=== PATIENT | male | born 1940 | race Caucasian/White ===

== ENCOUNTER 2018-06-02 16:53 | Inpatient (IN) | payer MEDICARE, BC ==
[~2018-06-02] VITALS: Ht 180.3 cm; Wt 85.7 kg
--- NOTE | ~2018-06-02 | HEMODYNAMI ---
PATIENT:NILSON STONE MEDICAL RECORD: [id number] : 36 LOCATION:[place] [address] ADMISSION DATE: 06/02/18 Generatedon:06/03/201810:42 Patient name: NILSON STONE Patient #: [id number] SSN: : Date of study: 06/03/2018 Page: Of Hemodynamic Procedure Report Patient Data Patient Demographics Procedure consent was obtained First Name: NILSON Gender: Male Last Name: BERTHA : 1940 Patient #: [id number] Age: 77 year(s) Race: Unknown Additional ID: [id number] Contact details Address: [place] [address] State: [place] City: [place] Zip code: [address] Past Medical History Allergies: No known allergies Admission Admission Data Admission Date: 06/02/2018 Admission Time: 17:55 Room #: [facility] Procedure Procedure Types Cath Procedure Diagnostic Procedure LHC LHC w/Coronaries Intra-Aortic Balloon Pump Sedation Charges Moderate Sedation up to 30 minutes PCI Procedure Coronary Stent Coronary Stent Initial x2 Procedure Description Procedure Date Procedure Date: 06/03/2018 Procedure Start Time: 9:17 Procedure End Time: 10:41 Procedure Staff Name Function Ashutosh Mcgraw MD Performing Physician Shannon Kirkland RT Monitor Jonh Lemus RN Nurse Sidra Moreno RT Scrub Procedure Data Cath Procedure Fluoroscopy Diagnostic fluoroscopy Total fluoroscopy Time: 8.6 time: 8.6 min min Diagnostic fluoroscopy Total fluoroscopy dose: dose: 1485 mGy 1485 mGy Contrast Material Contrast Material Type Amount (ml) Isovue 300 188 Entry Location Entry Primary Successful Side Size Upsize Upsize Entry Closure Succes sful Closure Location (Fr) 1 (Fr) 2 (Fr) Remarks Device Remarks Femoral Right 5 Fr 6 Fr 7 Fr Sheath WITH artery Short Short sutured IABP IN in PLACE place Estimated blood loss: 10 ml Diagnostic catheters Device Type Used For End Catheter Placement MULTIPACK JL 4.0 5Fr Left Coronary catheter Angiography MULTIPACK 3DRC 5Fr Right Coronary catheter Angiography MULTIPACK Pigtail 5 Fr LV Angiography catheter Procedure Complications No complications Procedure Medications Medication Administration Route Dosage Oxygen etCO2 Nasal cannula 2 l/min Lidocaine 2% added to field 20 Heparin Flush Bag added to field 2 bags (1000units/500ml NS) 0.9% NaCl I.V. 100 ml/hr Versed I.V. 1 mg Fentanyl I.V. 50 mcg Heparin Bolus I.V. 4000 units Integrilin (Bolus I.V. 7.3 ml 2mg/ml) Epinephrine I.V. 2 mg Amiodarone Loading I.V. 150 mg Dose (150mg/100ml D5W) Integrilin (Bolus I.V. 7.3 ml 2mg/ml) Oxygen NRB 16 l/min Amiodarone Loading I.V. 150 mg Dose (150mg/100ml D5W) Heparin Drip I.V. drip 1000 units/hr (31394fmerp/250 D5W) Dobutamine I.V. drip 5 mcg/kg/min (500mg/250ml D5W) Plavix P.O. 600 mg Hemodynamics Rest Heart Rate: 80 (bpm) Pressure Samples Time Site Value (mmHg) Purpose Heart Use Rate(bpm) 9:22 LV 102/5,12 EDP 77 9:22 AO 94/53(70) Pullback 77 9:22 LV 96/6,13 Pullback 77 Gradients Valve Time Site 1 Site 2 Mean SEP/DFP Peak To Heart Use (mmHg) (sec/min) Peak Rate (mmHg) (bpm) Aortic 9:22 LV AO 4 18 2 77 96/6,13 94/53(70) Calculations Valve P-P Mean Valve Index Valve Source Name Gradient Area Flow (cm2) Aortic 2 4 2 4 Snapshots Pre Cath Intra NCS Post Cath Vital Signs Time Heart Resp SPO2 etCO2 NIBP (mmHg) Rhythm Pain Sedation Rate (ipm) (%) (mmHg) Status Level (bpm) 9:04:19 77 14 94 0 141/68(106) NSR 0 (11) 10(A) , No pain 9:08:35 80 12 95 42.3 111/74(101) NSR 0 (11) 10(A) , No pain 9:12:43 74 14 93 0 119/65(88) NSR 0 (11) 10(A) , No pain 9:16:53 76 10 92 0 118/65(96) NSR 0 (11) 10(A) , No pain 9:21:05 76 10 96 40.8 116/62(91) NSR 0 (11) 10(A) , No pain 9:25:19 81 10 98 0 126/54(94) NSR w/ ST 0 (11) 10(A) Elevation , No pain 9:31:21 118 22 97 9.8 202/189(199) NSR w/ ST 0 (11) 10(A) Elevation , No pain 9:35:54 121 20 85 26.4 153/88(116) NSR w/ ST 0 (11) 10(A) Elevation , No pain 9:40:04 95 15 95 2.2 115/66(84) NSR w/ ST 0 (11) 10(A) Elevation , No pain 9:44:12 91 16 90 0 97/53(71) A-Fib 0 (11) 10(A) , No pain 9:48:19 91 15 90 21.1 98/53(61) A-Fib 0 (11) 10(A) , No pain 9:53:20 102 24 92 8.3 101/74(91) A-Fib 0 (11) 10(A) , No pain 9:58:17 101 16 91 0.7 90/61(71) A-Fib 0 (11) 10(A) , No pain 10:03:29 91 17 90 0 73/37(59) A-Fib 0 (11) 10(A) , No pain 10:09:27 93 17 92 7.5 77/39(59) A-Fib 0 (11) 10(A) , No pain 10:13:27 89 14 91 1.5 81/51(67) A-Fib 0 (11) 10(A) , No pain 10:18:22 105 23 91 16.6 105/48(92) A-Fib 0 (11) 10(A) , No pain 10:22:30 111 16 92 15.8 84/54(67) A-Fib 0 (11) 10(A) , No pain 10:26:31 94 15 95 14.3 88/50(61) A-Fib 0 (11) 10(A) , No pain 10:30:33 103 22 94 18.8 69/56(65) A-Fib 0 (11) 10(A) , No pain 10:34:30 98 18 93 0 79/49(61) A-Fib 0 (11) 10(A) , No pain 10:38:30 105 16 97 24.1 99/53(70) A-Fib 0 (11) 10(A) , No pain Medications Time Medication Route Dose Verified Delivered Reason Notes Effectiveness by by 9:10:13 Oxygen etCO2 2 l/min Ashutsoh Borja used for Nasal St Hang Lemus RN procedure cannula 9:10:20 Lidocaine 2% added 20ml vial Ashutosh Boykin for local to [facility] anesthetic field MD MEJIAS 9:10:27 Heparin Flush added 2 bags Ashutosh Boykin used for Bag to [facility] procedure (1000units/500ml field MD MEJIAS NS) 9:10:36 0.9% NaCl I.V. 100 ml/hr Ashutosh Borja Per physician [facility] Hang Lemus RN, MD 9:14:36 Versed I.V. 1 mg Ashutosh Borja for sedation [facility] Hang Lemus RN, MD 9:14:42 Fentanyl I.V. 50 mcg Ashutosh Borja for sedation [facility] Hang Lemus RN, MD 9:24:31 Heparin Bolus I.V. 4000 units Ashutosh Borja for verified St Hang Lemus RN anticoagulation with dr MD huntley 9:25:37 Integrilin I.V. 7.3ml Ashutosh Sandersie for wasted (Bolus 2mg/ml) [facility] Hang Lemus RN antiplatelet 2.7 ml therapy of vial 9:28:22 Epinephrine I.V. 2 mg Ashutosh Borja Per physician [facility] Hang Lemus RN, MD 9:32:42 Amiodarone I.V. 150 mg Ashutosh Sandersie Per physician Loading Dose [facility] Hang Lemus RN (150mg/100ml D5W) 9:34:22 Integrilin I.V. 7.3ml Ashutosh Sandersie for wasted (Bolus 2mg/ml) [facility] Hang Lemus RN antiplatelet 2.7 ml therapy of vial 9:36:42 Oxygen NRB 16 l/min Ashutosh Sandersie for low [address] Hang Lemus RN, MD 10:00:09 Amiodarone I.V. 150 mg Ashutosh Borja Per physician Loading Dose St Hang Lemus RN (150mg/100ml D5W) 10:03:48 Heparin Drip I.V. 1000 Ashutosh Borja Per physician verified (20652zyztk/250 drip units/hr St Hang Lemus RN with dr PatelW) MD huntley 10:13:42 Dobutamine I.V. 5 Ashutosh Borja Per physician (500mg/250ml drip mcg/kg/min [facility] Hang Lemus RN D5W) 10:31:02 Plavix P.O. 600 mg Ashut[address] Borja for [facility] Hang Lemus RN antiplatelet therapy Procedure Log Time Note 8:42:08 Jonh Lemus RN sent for patient. Start room use. 8:42:08 Time tracking: Regular hours (M-F 7:00 - 5:00) 8:42:13 Plan of Care:Hemodynamics will remain stable., Cardiac rhythm will remain stable., Comfort level will be maintained., Respiratory function will remain adequate., Patient/ family verbilizes understanding of procedure., Procedure tolerated without complication., Recovers from procedure without complications.. 9:03:04 Patient received from PCU to CCL 2 Alert and oriented. Tansferred to table in Supine position. 9:03:05 Warm blankets applied, and ekaterina hugger turned on for patient comfort. 9:03:05 Correct patient and procedure confirmed by team. 9:03:06 Signed procedure consent form obtained from patient. 9:03:07 ECG and BP/O2 sat monitors applied to patient. 9:03:08 Full Disclosure recording started 9:03:11 Vital chart was started 9:03:15 Rhythm: sinus rhythm 9:03:19 H&P Date Dictated: 06/03/2018 Within 30 days and on chart.. 9:03:21 Pre-procedure instructions explained to patient. 9:03:21 Pre-op teaching completed and patient verbalized understanding. 9:03:23 Family in patients room. 9:03:24 Patient NPO since Midnight. 9:03:34 Patient allergic to No known allergies 9:03:36 Is the patient allergic to Iodine/contrast media? No. 9:03:37 Is patient on blood thinner?No 9:03:39 Patient diabetic? No. 9:03:43 Previous problem with sedation/anesthesia? No ? 9:03:44 Snore? Yes 9:03:45 Sleep apnea? No 9:03:46 Deviated septum? No 9:03:46 Opens mouth fully? Yes 9:03:47 Sticks out tongue? Yes 9:03:49 Airway obstruction? No ? 9:03:51 Dentures? No ? 9:03:54 Pre procedure: right dorsailis pedis pulse 2+ Normal; easily identifiable; not easily obliterated 9:03:55 Patient pain scale 0/10 ?. 9:04:02 IV patent on arrival in left forearm with 0.9% NaCl at O. 9:04:05 Lab results completed and on chart. 9:04:07 Right groin area was prepped with chlora-prep and draped in sterile fashion 9:04:08 Alarms reviewed by R. N. 9:04:08 Sharps counted by scrub and verified by R.N. 9:04:11 Use device set Femoral Dx 9:04:12 ACIST Syringe (41199) opened to sterile field. 9:04:12 Bag Decanter (2002S) opened to sterile field. 9:04:13 Medline Cath Pack ([id number]) opened to sterile field. 9:04:13 DIAGNOSTIC WIRE .035 260cm J wire (026770) opened to sterile field. 9:04:15 ACIST Hand Control (01008) opened to sterile field. 9:04:15 ACIST Manifold (42420) opened to sterile field. 9:04:16 DIAGNOSTIC Multipack 5Fr catheter set (NS4039) opened to sterile field. 9:04:17 Tegaderm 4 x 4 (1626W) opened to sterile field. 9:04:18 SHEATH 5FR [place] (UKC653) opened to sterile field. 9:09:14 Baseline sample Acquired. 9:10:13 Oxygen 2 l/min etCO2 Nasal cannula was administered by Jonh Lemus RN; used for procedure; 9:10:20 Lidocaine 2% 20ml vial added to field was administered by Ashutosh Mcgraw MD; for local anesthetic; 9:10:27 Heparin Flush Bag (1000units/500ml NS) 2 bags added to field was administered by Ashutosh Mcgraw MD; used for procedure; 9:10:36 0.9% NaCl 100 ml/hr I.V. was administered by Jonh Lemus RN; Per physician; 9:14:11 Final Timeout: patient, procedure, and site verified with staff and physician. All members of the team are in agreement. 9:14:12 Right groin site verified by team. 9:14:16 Fire Safety Assessment: A--An alcohol-based skin anteseptic being used preoperatively., C--Open oxygen or nitrous oxide is being used. 9:14:32 Physical assessment completed. ASA score P 2 - A patient with mild systemic disease as per Ashutosh Mcgraw MD. 9:14:35 Sedation plan: IV Moderate Sedation Medication:Versed, Fentanyl 9:14:36 Versed 1 mg I.V. was administered by Jonh Lemus RN; for sedation; 9:14:42 Fentanyl 50 mcg I.V. was administered by Jonh Lemus RN; for sedation; 9:17:02 Procedure started. 9:17:09 Local anesthetic to right femoral artery with Lidocaine 2% by Ashutosh Mcgraw MD.INITIAL ACCESS ONLY 9:17:11 Zero performed for pressure channel P1 9:18:27 A 5 Fr sheath was inserted into the Right Femoral artery 9:19:24 A MULTIPACK JL 4.0 5Fr catheter was advanced over the wire and used for Left Coronary Angiography. 9:20:16 Catheter removed. 9:20:21 A MULTIPACK 3DRC 5Fr catheter was advanced over the wire and used for Right Coronary Angiography. 9:21:09 Use device set [place] PCI 9:21:22 Catheter removed. 9:21:30 A MULTIPACK Pigtail 5 Fr catheter was advanced over the wire and used for LV Angiography. 9:22:03 SHEATH 6FR [place] (FTD730) opened to sterile field. 9:22:06 INFLATOR Merit BasixCompak (II1344) opened to sterile field. 9:22:07 WHISPER 300cm guide wire ([id number]) opened to sterile field. 9:22:32 LV gram done using VICTOR 9::34 Injector settings: Ml/sec: 10, Volume: 20, 9:22:35 LV hemodynamics recorded. 9:22:39 EF : 55 % 9:22:46 Catheter removed. 9:22:50 GUIDE 6FR EBU 3.5 catheter ([id number]) opened to sterile field. 9:23:35 Sheath upsized to a 6 Fr Short. 9:23:54 6 Fr EBU 3.5 guide catheter was inserted over the wire 9:24:31 Heparin Bolus 4000 units I.V. was administered by Jonh Lemus RN; for anticoagulation; verified with dr huntley 9:24:53 WHISPER wire advanced. 9:25:37 Integrilin (Bolus 2mg/ml) 7.3ml I.V. was administered by Jonh Lemus RN; for antiplatelet therapy; wasted 2.7 ml of vial 9:26:38 Inflate balloon Inflation number: 1 A EMERGE OTW 3.0 x 12 balloon ([id number]) was prepped and advanced across the 1st Ob Mai, then inflated to 12 SAPNA for 0:04 (min:sec). 9:28:22 Epinephrine 2 mg I.V. was administered by Jonh Lemus RN; Per physician; 9:30:14 Wire removed. 9:30:17 BMW TO CIRC wire advanced. 9:30:37 Inflation number: 1 The EMERGE OTW 3.0 x 12 balloon ([id number]) was reinflated across the Prox LAD, to 12 SAPNA for 0:00 (min:sec). 9:30:49 Inflation number: 3 The EMERGE OTW 3.0 x 12 balloon ([id number]) was reinflated across the 1st Ob Mai, to 10 SAPNA for 0:10 (min:sec). 9:31:03 Inflation number: 2 The EMERGE OTW 3.0 x 12 balloon ([id number]) was reinflated across the 1st Ob Mai, to 0 SAPNA for 0:00 (min:sec). 9:31:35 Balloon removed over the wire. 9:32:42 Amiodarone Loading Dose (150mg/100ml D5W) 150 mg I.V. was administered by Jonh Lemus RN; Per physician; 9:33:19 BMW 300cm Brewer 2 J wire ([id number]) opened to sterile field. 9:34:20 Place stent Inflation Number: 4 A INTEGRITY RX 3.0 x 30 stent ([id number]) was prepped and advanced across the 1st Ob Mai. The stent was deployed at 14 SAPNA for 0:18 (min:sec). 9:34:22 Integrilin (Bolus 2mg/ml) 7.3ml I.V. was administered by Jonh Lemus RN; for antiplatelet therapy; wasted 2.7 ml of vial 9:36:00 Stent catheter was removed intact over wire. 9:36:01 Wire removed. 9:36:42 Oxygen 16 l/min NRB was administered by Jonh Lemus RN; for low 02 sats; 9:38:11 BMW TO LAD wire advanced. 9:39:21 Place stent Inflation Number: 2 A INTEGRITY OTW 3.0 X 12 stent ([id number]) was prepped and advanced across the Prox LAD. The stent was deployed at 14 SAPNA for 0:20 (min:sec). 9:39:58 Stent catheter was removed intact over wire. 9:43:17 Place stent Inflation Number: 3 A INTEGRITY OTW 3.0 X 30 stent ([id number]) was prepped and advanced across the Prox LAD. The stent was deployed at 14 SAPNA for 0:29 (min:sec). 9:44:24 Stent catheter was removed intact over wire. 9:44:24 Wire removed. 9:44:25 Guide catheter removed. 9:45:11 Sheath upsized to a 7 Fr Short. 9:45:13 CALLED FOR CV OR ICU BED 9:46:19 IABP 40cm balloon catheter ([id number]) opened to sterile field. 9:46:43 SHEATH 7FR [place] (YTD930) opened to sterile field. 9:47:00 40cc IABP inserted into the RFA . 9:47:03 Augmentation: 1:2 per physician. 9:47:04 Trigger: Pressure 9:51:07 Augmenter BP: 90 9:51:36 Sheath removed intact; hemostasis achieved with Sheath sutured in place to the Right Femoral artery. 9:52:03 SHEATH AND IABP SUTURED IN PLACE WITH 2-0 SILK 9:55:04 Procedure ended.(Physican Out) 9:57:13 Fluoroscopy time 08.60 minutes. 9:57:17 Flurop Dose total: 1485 9:57:17 Fluoroscopy dose: 1485 mGy 9:58:39 Contrast amount:Isovue 300 188ml. 9:58:41 Sharps counted by scrub and verified by R.N. 9:58:45 Insertion/operative site no bleeding no hematoma. 9:58:49 Post-op/insertion site Right Femoral artery dressed using a 4 x 4 and Tegaderm. 9:58:52 Post right femoral artery:stable, clean and dry 9:58:53 Post Procedure Pulses reassessed and unchanged 9:59:01 Post-procedure physical assessment completed. ASA score P 4 - A patient with severe systemic disease that is a constant threat to life as per Ashutosh Mcgraw MD. 9:59:04 Post procedure rhythm: atrial fibrillation 9:59:12 Estimated blood loss: 10 ml 9:59:14 Post procedure instruction explained to patient.Patient verbalizes understanding. 9:59:14 Patient needs reinforcement of post procedure teaching. 9:59:16 Procedure and supply charges have been captured, reviewed, submitted and are correct. 9:59:28 Procedure type changed to Cath procedure, Diagnostic procedure, LHC, LHC w/Coronaries, Intra-Aortic Balloon Pump, Sedation Charges, Moderate Sedation up to 30 minutes, PCI procedure, Coronary Stent, Coronary Stent Initial x2 10:00:09 Amiodarone Loading Dose (150mg/100ml D5W) 150 mg I.V. was administered by Jonh Lemus RN; Per physician; 10:01:04 See physician's report for complete and final results. 10:01:09 Procedure Complication : No complications 10:03:48 Heparin Drip (13668mnzxm/250 D5W) 1000 units/hr I.V. drip was administered by Jonh Lemus RN; Per physician; verified with dr huntley 10:10:03 PATIENT TO GO TO CV04. WAITING TO TRANSFER PATIENT OUT AND CLEAN ROOM. 10:13:42 Dobutamine (500mg/250ml D5W) 5 mcg/kg/min I.V. drip was administered by Jonh Lemus RN; Per physician; 10:20:11 2-0 Silk 685H opened to sterile field. 10:20:12 2-0 Silk 685H opened to sterile field. 10:20:38 Tegaderm 4 x 4 (1626W) opened to sterile field. 10:20:39 Tegaderm 4 x 4 (1626W) opened to sterile field. 10:31:02 Plavix 600 mg P.O. was administered by Jonh Lemus RN; for antiplatelet therapy; 10:38:50 Report given to CVICU. 10:41:49 Vital chart was stopped 10:41:54 Patient transfered to CVICU with Bed. 10:41:56 Procedure ended. 10:41:56 Full Disclosure recording stopped 10:42:01 End room use (Document Last) Intervention Summary Intervention Notes Time ActionType Lesion and Equipment Action# Pressure Duration Attributes Used 9:26:38 Inflate 1st Ob Mai EMERGE OTW 1 12 00:04 balloon 3.0 x 12 balloon ([id number]) 9:30:37 Reinflate Prox LAD EMERGE OTW 1 12 00:00 balloon 3.0 x 12 balloon ([id number]) 9:30:49 Reinflate 1st Ob Mai EMERGE OTW 3 10 00:10 balloon 3.0 x 12 balloon ([id number]) 9:31:03 Reinflate 1st Ob Mai EMERGE OTW 2 0 00:00 balloon 3.0 x 12 balloon ([id number]) 9:34:20 Place stent 1st Ob Mai INTEGRITY RX 4 14 00:18 3.0 x 30 stent ([id number]) 9:39:21 Place stent Prox LAD INTEGRITY 2 14 00:20 OTW 3.0 X 12 stent ([id number]) 9:43:17 Place stent Prox LAD INTEGRITY 3 14 00:29 OTW 3.0 X 30 stent ([id number]) Device Usage Item Name Manufacture Quantity Catalog Number [facility] Minimal Lot# / Charge Number Stock Stock Serial# Code ACIST Syringe Acist 1 66433 485247 244116 431089 20 (71280) [employer] Bag Decanter Microtek 1 838933 10800 485775 5 () Medical Inc. Medline Cath Medline 1 [id number] 267094 80408 508414 5 Pack ([id number]) DIAGNOSTIC WIRE St Dominguez 1 266348 484351 030513 710387 30 .035 260cm J wire (928045) ACIST Hand Acist 1 76778 576165 250132 423803 5 Control (06912) [employer] Inc ACIST Manifold Acist 1 09778 661256 996629 105783 5 (55617) [employer] Systems Inc DIAGNOSTIC Cardinal 1 TM5031 123701 58422 451407 30 Multipack 5Fr Health catheter set (QJ0316) Tegaderm 4 x 4 3M 3 1626W 251833 536650 951021 5 (1626W) SHEATH 5FR Terumo 1 MDH324 661705 176049 979455 5 [place] (MQJ151) MULTIPACK JL Cardinal 1 814382 5 4.0 5Fr Health catheter MULTIPACK 3DRC Cardinal 1 451183 5 5Fr catheter Health MULTIPACK Cardinal 1 692663 5 Pigtail 5 Fr Health catheter SHEATH 6FR Terumo 1 COU565 223864 924000 105770 40 [place] (MTU698) INFLATOR Merit Merit 1 JU1851 944058 392928 697389 15 [facility] (TG7671) WHISPER 300cm Bradford 1 [id number] 294259 539591 150334 5 guide wire Vascular ([id number]) GUIDE 6FR EBU Medtronic 1 [id number] 098923 55791 574590 3 3.5 catheter ([id number]) EMERGE OTW 3.0 Dyer 1 [id number] 728424 339537 360717 5 [id number] x 12 balloon Scientific ([id number]) BMW 300cm Osman 1 [id number] 306862 957399 346929 5 Brewer 2 J Vascular wire (8558359F) INTEGRITY RX Medtronic 1 [id number] 555195 557023 482297 5 [id number] 3.0 x 30 stent ([id number]) INTEGRITY OTW Medtronic 1 [id number] 506014 040564 056548 0 [id number] 3.0 X 12 stent ([id number]) INTEGRITY OTW Medtronic 1 [id number] 930018 828264 823620 3 [id number] 3.0 X 30 stent ([id number]) IABP 40cm [facility] 1 [id number] 358332 119800 080066 1 balloon [facility]ES [facility] catheter (238627) ([id number]) SHEATH 7FR Terumo 1 GNT331 740714 673074 296075 5 [place] (RLZ476) 2-0 Silk 685H Ethicon 2 685H 471928 95759 382892 5 Signature Audit [place] Stage Time Signature Unsigned Intra-Procedure 06/03/2018 Shannon 10:42:13 AM Counts RT(R) Signatures Monitor : Shannon Signature : Counts RT Date : Time : [facility] [address] [place] [address]
[~2018-06-02 16:53] MED LIST: CO Q-1050 MG PO; FISH OIL 1,0001 CA1 PO; LOPRESSOR25 MG PO; MAGNESIUM GLUC500 M1 PO; OMEPRAZOLE40 MG PO; PRAVACHOL40 MG PO; SUPER B COMPLE150 MG PO
[2018-06-02] MEDS ORDERED: LOVASTATIN20 MG PO (18:56)
--- NOTE | 2018-06-02 19:32 | NUR ---
PT IN BED. FAMILY AT BEDSIDE. DENIES NEEDS AT THIS TIME.
[2018-06-02 20:00] VITALS: BP 108/60
[2018-06-02 21:59] LABS: CKMB 51.8 U/L (0.0-3.6); CREATINE KINASE 479 UL (21-232)
[2018-06-02 22:14] LABS: TROPONIN-I 6.017 ng/mL (0.000-0.060)
[2018-06-03] VITALS (55 sets, daily range): BP systolic 82–156; BP diastolic 38–85
--- NOTE | 2018-06-03 05:44 | NUR ---
RESTING IN BED WITH EYES CLOSED. NO S/S OF DISTRESS OBSERVED, WILL CONT. POC.
--- NOTE | 2018-06-03 07:46 | NUR ---
CONSENTS SIGNED FOR [facility]. WILL CONT. PLAN OF CARE.
[2018-06-03 08:11] LABS: BASOPHILS 0.2 % (0-2); EOSINOPHILS 4.4 % (0-7); HEMATOCRIT 43.7 % (42.0-54.0); HEMOGLOBIN 15.6 g/dL (13.5-17.5); IMMATURE GRANULOCYTES 0.2 % (0-5); LYMPHOCYTES 26.6 % (15-50); MCHC 35.7 g/dL (31.0-37.0); MCV 92.4 fL (80.0-100.0); MEAN PLATELET VOLUME 8.9 fL (7.4-10.4); NEUTROPHILS 59.6 % (40-80); PLATELET COUNT 129 10x3/uL (130-400); RBC 4.73 10x6/uL (4.20-6.10); RDW 12.2 % (11.5-14.5); WBC 8.4 10x3/uL (4.8-10.8)
[2018-06-03 08:31] LABS: CALC OSMOLALITY 277 mosm/kg (275-300); CALCIUM 8.6 mg/dL (8.5-10.1); CARBON DIOXIDE 26.7 mmol/L (21.0-32.0); CHLORIDE - SERUM 100 mmol/L (98-107); POTASSIUM - SERUM 4.1 mmol/L (3.5-5.1); SODIUM 137 mmol/L (136-145); UREA NITROGEN 19 mg/dL (7-18); eGFR NON AFRICAN AMERICAN 76 mL/min (90-120)
[2018-06-03 08:33] LABS: GLUCOSE 129 mg/dL (74-106)
--- NOTE | 2018-06-03 08:58 | NUR ---
PRE-OPS GIVEN. TO ARTS ADMINISTRATOR OR MANAGER BY BED.
--- NOTE | 2018-06-03 10:50 | NUR ---
REC'D INTO ROOM CV04 AND HOOKED UP ON CM. SATTING 75% ON 2L NC. CHANGED TO HIGHFLOW NC AT 13L. SATS REMIANED LOW. CALLED DR. CORONADO AND JAKOB RT. C/O CP 01/09. ORDERS REC'D FOR MORPHINE AND LASIX.
--- NOTE | 2018-06-03 11:01 | NUR ---
PLACING ON 100% NON-REBREATHER. REMAINS SATTING IN 80'S. JAKOB SARAVIA IS ON HIS WAY TO CV.
--- NOTE | 2018-06-03 11:01 | NUR ---
RAFAEL HOLGUIN CALLED JAKOB SARAVIA ABOUT SATS 83% ON 13L HIGH FLOW CANNULA.
--- NOTE | 2018-06-03 11:04 | NUR ---
100% NON REBREATHER. SATTING 90% NOW.
--- NOTE | 2018-06-03 11:06 | NUR ---
JAKOB RT HERE MANAGING NON REBREATHER.
--- NOTE | 2018-06-03 11:06 | NUR ---
CHOUDHURY PLACED IN BLADDER BY J LUIS DIETRICH RN.
--- NOTE | 2018-06-03 11:10 | NUR ---
SATTING 94% ON 100% NON REBREATHER.
--- NOTE | 2018-06-03 11:37 | NUR ---
FAMILY AT BEDSIDE. UPDATED BY DR. MCKENNA.
--- NOTE | 2018-06-03 12:18 | NUR ---
I CALLED DR. CORONADO FOR TACHYCARDIA. UAF RATE OF 130-150'S. ORDERS REC'D FOR CORDORONE BOLUS AND TO START CORDORONE DRIP AT 1 MG/MIN
--- NOTE | 2018-06-03 12:30 | NUR ---
HAD 200 CC BROWN EMESIS. ZOFRAN GIVEN.
--- NOTE | 2018-06-03 12:47 | NUR ---
DR. CORONADO AT BEDSIDE. CARDIOVERTED AT 200J. SUCCESSFULLY CONVERTED TO ST RATE OF 140 BUT GOES BACK INTO UAF RATE OF 114. DIGOXIN 0.25MG IV X1 DOSE ORDERED BY DR. CORONADO.
--- NOTE | 2018-06-03 12:50 | NUR ---
DR. CORONADO CHANGED IABP TO 1:3.
--- NOTE | 2018-06-03 12:55 | NUR ---
NO S/S OF NAUSEA.
--- NOTE | 2018-06-03 12:55 | CN ---
PATIENT NAME:NILSON STONE MEDICAL RECORD: [id number] : 36 LOCATION:[facility] ADMIT DATE: 06/02/18 ACCOUNT: [id number] CONSULTING PHYSICIAN: WICHO RENO MD REFERRING PHYSICIAN: JAZMIN MCKENNA MD DATE OF CONSULTATION: 06/03/2018 HISTORY OF PRESENT ILLNESS: A 77-year-old gentleman with a known history of coronary artery disease, status post intervention approximately 10 years ago. He has a history of hypertension and hyperlipidemia. Also had chest pain yesterday, lasted 2-3 hours. Sent to [place], was found to have nonspecific ST-T changes, increased troponin consistent with NSTEMI. We are asked to see him concerning his cardiovascular status. PAST MEDICAL HISTORY: Includes: 1. History of hypertension. 2. Hyperlipidemia. 3. Coronary artery disease as described above. ALLERGIES: None known. MEDICATIONS: Include lovastatin 20 every day, metoprolol 25 b.i.d., aspirin 81 every day, Protonix 40 every day. SOCIAL HISTORY: Lives in [place]. He is a nonsmoker, nondrinker. Easily takes care of all his ADLs. Exercises on a semi-regular basis. REVIEW OF SYSTEMS: The patient reports easy bruising but reports no swollen glands. The patient reports no fever, no night sweats, no significant weight gain, no significant weight loss. No significant exercise tolerance. The patient reports no dry eyes, no irritation, no vision change. Patient reports no difficulty hearing and no ear pain. Patient reports no frequent nose bleeds or nose and sinus problems. Patient reports on arm pain on exertion. No shortness of breath while lying down. No history of heart murmur. Patient reports no cough, no wheezing or coughing up blood. Patient reports no abdominal pain, no vomiting. Normal appetite. No diarrhea and not vomiting blood. No nausea and no constipation. Patient reports no incontinence. No difficulty urinating. No hematuria. No increased frequency. Patient reports no muscle aches. No weakness, no arthralgias, no back pain. No swelling of the extremities. Patient reports no abnormal mole, no jaundice, no rashes. Reports no loss of consciousness. No weakness and no numbness. No seizures, dizziness, or headaches. The patient reports no depression, no sleep disturbance, feeling safe in a relationship and no alcohol abuse. Patient reports on fatigue. Reports no runny nose or sinus pressure. No itching, no hives, and no frequent sneezing. PHYSICAL EXAMINATION: GENERAL: Pleasant gentleman, in no acute distress. VITAL SIGNS: Blood pressure 156/84, pulse 67 and regular. HEENT: Normocephalic, atraumatic. NECK: No bruits noted. HEART: Regular. A II/ systolic ejection murmur. LUNGS: Good air excursion. ABDOMEN: Soft, nontender. EXTREMITIES: Pulses 2+ with no edema. CONSULT REPORT [id number] NILSON STONE DIAGNOSTIC DATA: ECG shows nonspecific ST-T changes inferolaterally. IMPRESSION: Kks-MW-swbeffcxr myocardial infarction, hypertension, hyperlipidemia. PLAN: Plan for diagnostic angiography, intervention based on the above. TRANSINT:[id number] Voice Confirmation ID: [id number] DOCUMENT ID: [id number] WICHO RENO MD at 1255 CC: [id number] DICTATION DATE: 06/03/18 0734 EXECUTIVE CHEF: 06/03/18 1017 ADM IN [place] [id number] [place] [address]
--- NOTE | 2018-06-03 13:00 | NUR ---
SHIFTED PT. TO RIGHT KEEPING RIGHT LEG STRAIGHT.
--- NOTE | 2018-06-03 13:15 | NUR ---
I CALLED DR. CORONADO FOR AN AUGMENTED PRESSURE OF <80. ORDERS REC'D TO INCREASE IVF TO 100 CC PER HOUR.
--- NOTE | 2018-06-03 13:51 | NUR ---
ALL NOTES STARTING AT 1050 WERE DOCUMENTED BY NOEL VASQUEZ NOT RAFAEL HOLGUIN.
--- NOTE | 2018-06-03 13:52 | NUR ---
JAKOB RT AT BEDSIDE. PT. SATTING 99% ON 100% NONREBREATHER. JAKOB CHNAGED TO HIGH FLOW NC 12L SATTING 96%.
[2018-06-03 14:33] LABS: INR 1.09 (0.85-1.17); PROTIME 13.6 SECONDS (11.6-15.0)
--- NOTE | 2018-06-03 14:36 | NUR ---
REASSESSMENT COMPLETED PER FLOW SHEET. REMAINS ON 15L HIGH FLOW NC. SATTING 95%. RR 18 EVEN AND UNLABORED. REMAINS ON IABP. REMINDED HIM TO KEEP LEG STRAIGHT. LUNGS CTA. BS+ X4. UPPER EXT PPP. RIGHT LOWER EXT PPD. LEFT LOWER EXT PPP. CASTRO. FOLLOWS COMMANDS. CPOC. 1:1 NURSING CARE IN PROCESS.
--- NOTE | 2018-06-03 15:03 | NUR ---
DIGOXIN 0.25 IVP GAVE PER ORDERS.
--- NOTE | 2018-06-03 15:06 | NUR ---
SHIFTED TO LEFT FOR COMFORT. KEEPING RIGHT LEG STRAIGHT.
--- NOTE | 2018-06-03 15:30 | NUR ---
CM=ST RATE OF 119.
--- NOTE | 2018-06-03 15:45 | NUR ---
OFFERED SIPS OF H2O. TOOK ONLY ONE.
--- NOTE | 2018-06-03 15:56 | NUR ---
PARTIALLY AMPUTATED RIGHT FOOT.
--- NOTE | 2018-06-03 16:10 | NUR ---
FAMILY AT BEDSIDE. UPDATED.
--- NOTE | 2018-06-03 16:52 | NUR ---
CM=2:1 FLUTTER RATE OF 117.
--- NOTE | 2018-06-03 17:00 | NUR ---
SHIFTED TO RIGHT FOR COMFORT BUT KEPT RIGHT LEG STRAIGHT WHEN DOING SO.
--- NOTE | 2018-06-03 18:12 | NUR ---
CORDORONE SCANNED AND INFUSING PER ORDERS.
--- NOTE | 2018-06-03 18:58 | NUR ---
REMOVED SOILED LINEN AND REPLACED WITH CLEAN. PARTIAL BATH GIVEN.
--- NOTE | 2018-06-03 19:00 | NUR ---
REPORT RECEIVED AND ASSESSMENT COMPLETED. SEE FLOWSHEET FOR FULL DETAILS. PT OF DR RENO. IABP IN PLACE. CURRENTLY IN 2-1 FLUTTER. INSTRUCTIONS TO KEEP AUG PRESSURE ABOVE 80. CURRENTLY ON DOBUTAMINE CORDARONE HEPARIN AND NS INFUSIONS. NEXT PTT TO BE DRAWN IN AM PER PROTOCOL. WILL MONITOR CAREFULLY THROUGHOUT SHIFT. PT AND FAMILY EDUCATED ON IABP AND IMPORTANCE OF DEVICE. INSTRUCTED ON DANGERS OF EXCESSIVE MOVEMENT OF LIMB.
--- NOTE | 2018-06-03 19:48 | NUR ---
FLUTTER IS VARIABLE RATE. MD HAS BEEN CONTACTED AND IS AWARE PER DAY SHIFT. NO INSTRUCTIONS GIVEN BY MD FOR CHANGES AT THIS TIME. WILL CONTINUE PLAN OF CARE ORDERED. PT A/O FAMILY AT BEDSIDE. WILL MONITOR
--- NOTE | 2018-06-03 23:50 | NUR ---
NO CHANGES IN PT STATUS VSS. WILL CONTINUE TO MONITOR
[2018-06-04] VITALS (93 sets, daily range): BP systolic 94–141; BP diastolic 33–60
--- NOTE | 2018-06-04 00:49 | NUR ---
PT CHANGED FROM 3 TO 1 FLUTTER TO JUNCTIONAL RHYTHM FOR 5 BEATS BEFORE CONVERTING TO NSR AT AT RATE OF 82. WILL MONITOR CLOSELY.
[2018-06-04 04:56] LABS: HEMATOCRIT 41.6 % (42.0-54.0); HEMOGLOBIN 14.7 g/dL (13.5-17.5); MCH 32.7 pg (26.0-34.0); MCHC 35.3 g/dL (31.0-37.0); MCV 92.4 fL (80.0-100.0); RBC 4.5 10x6/uL (4.20-6.10); RDW 12.4 % (11.5-14.5)
[2018-06-04 04:57] LABS: WBC 12.2 10x3/uL (4.8-10.8)
[2018-06-04 05:15] LABS: ALKALINE PHOSPHATASE 50 U/L (46-116); ALT (SGPT) 22 U/L (10-68); BILIRUBIN - TOTAL 0.92 mg/dL (0.2-1.3); CALC OSMOLALITY 278 mosm/kg (275-300); CALCIUM 7.8 mg/dL (8.5-10.1); CARBON DIOXIDE 25.4 mmol/L (21.0-32.0); CHLORIDE - SERUM 103 mmol/L (98-107); GLUCOSE 140 mg/dL (74-106); MAGNESIUM - SERUM 1.9 mg/dL (1.8-2.4); POTASSIUM - SERUM 4.4 mmol/L (3.5-5.1); PROTEIN - SERUM 6.2 g/dL (6.4-8.2); SODIUM 137 mmol/L (136-145); UREA NITROGEN 20 mg/dL (7-18); eGFR NON AFRICAN AMERICAN 76 mL/min (90-120)
--- NOTE | 2018-06-04 07:00 | NUR ---
REC'D CARE OF PT. A&O X3. ON 7L O2 VIA HIGH FLOW NC. SATTING 96%. RR 15 EVEN AND UNLABORED. RIGHT GROIN IABP SITE. CD&I. NO BLOOD IN IABP TUBING. LUNGS CTA. BS + X4. PPP. CASTRO. FOLLOWS COMMANDS. VSS. CPOC. 1:1 NURSING CARE IN PROGRESS.
--- NOTE | 2018-06-04 07:14 | NUR ---
ELECTROLYTES REVIEWED. NOTHING TO TREAT PER ELECTROLYTE PROTOCOL.
--- NOTE | 2018-06-04 07:42 | NUR ---
DAUGHTER AT BEDSIDE. ASSISTING WITH COFFEE. PT. DENIES OTHER NEEDS. DENIES REGULAR DIET TRAY.
--- NOTE | 2018-06-04 08:32 | NUR ---
SHIFTED TO LEFT FOR COMFORT. KEEPING RIGHT LEG STRAIGHT.
--- NOTE | 2018-06-04 09:01 | NUR ---
REFUSED FOOD TRAY.
--- NOTE | 2018-06-04 09:08 | NUR ---
TEACHING DONE ON KEEPING RIGHT LEG STRAIGHT.
--- NOTE | 2018-06-04 09:09 | NUR ---
REQUESTED LORELEI. OBLIGED.
--- NOTE | 2018-06-04 09:23 | NUR ---
OK TO CHANGE IABP TO 1:[address] CORONADO.
--- NOTE | 2018-06-04 09:30 | NUR ---
DECREASE IVF TO 50CC PER HOUR PER DR. CORONADO.
--- NOTE | 2018-06-04 10:53 | NUR ---
REASSESSMENT COMPLETED PER FLOW SHEET. NO ACUTE CHANGES. REMAINS STABLE ON IABP.
--- NOTE | 2018-06-04 12:00 | NUR ---
REFUSED FOOD TRAY.
--- NOTE | 2018-06-04 12:20 | NUR ---
C/O NAUSEA. ZOFRAN GIVEN.
--- NOTE | 2018-06-04 12:28 | NUR ---
FAMILY AT BEDSIDE. UPDATED.
--- NOTE | 2018-06-04 13:05 | NUR ---
NO S/S OF NAUSEA.
--- NOTE | 2018-06-04 13:45 | NUR ---
RESTING WITH EYES CLOSED. VSS.
--- NOTE | 2018-06-04 15:43 | NUR ---
DENIES NEEDS. DENIES PAIN.
--- NOTE | 2018-06-04 16:22 | NUR ---
FAMILY AT BEDSIDE. UPDATED.
--- NOTE | 2018-06-04 16:57 | NUR ---
OFFERED SOMETHING TO EAT. REQUESTED TURKEY DEYSIWHSANJAY. OBLIGED.
--- NOTE | 2018-06-04 16:59 | NUR ---
ZOFRAN GIVEN PROPHYLATICALLY BEFORE TURKEY SANDWHICH SERVED.
--- NOTE | 2018-06-04 17:34 | NUR ---
REQUESTED PAIN MED. OBLIGED.
--- NOTE | 2018-06-04 19:16 | NUR ---
REPORT RECEIVED, SHIFT ASSESSMENT COMPLETED PER FLOW SHEET. AAOX4. PERRLA. 7 L O2 VIA OXYMIZER. BS ACTIVE X4. ABDOMEN SOFT TO PALPATION. S1 S2 NOTED. HR 85 SINUS RHYTHM ON MONITOR. IABP SITE TO RIGHT GROIN, NO SIGNS OF HEMATOMA, DRESSING C/D/I, RT PEDAL PULSE WEAK TO PALPATION. LT PEDAL AND RADIAL PULSES PALPABE. ORDERS RECEIVED FROM DAY SHIFT RN TO KEEP AUGMENTED PRESSURE ON IABP ABOVE 80 AND TO NOT TITRATE DOBUTAMINE PER DOCTOR'S ORDERS. NO BLOOD ON IABP TUBING. SEE FLOW SHEET FOR COMPLETE ASSESSMENT. WILL CONTINUE TO MONITOR. DENIES NEEDS. CALL LIGHT WITHIN REACH. TEACHING PROVIDED TO KEEP RT LEG STRAIGHT, VERBALIZED UNDERSTANDING.
--- NOTE | 2018-06-04 21:00 | NUR ---
RESTING, NO VISITORS. IABP SITE ASSESSED, NO BLOOD IN TUBING, DRESSING C/D/I, NO SIGNS OF HEMATOMA. DENIES NEEDS. CALL LIGHT WITHIN REACH.
--- NOTE | 2018-06-04 22:50 | NUR ---
AWAKE, COUGHING, TISSUES AND ORAL SUCTIONING PROVIDED, YELLOW SPUTUM NOTED. DENIES OTHER NEEDS. CALL LIGHT WITHIN REACH.
--- NOTE | 2018-06-04 23:00 | NUR ---
REASSESSMENT COMPLETED PER FLOW SHEET. VSS. NO SIGNS OF HEMATOMA TO RT GROIN IABP SITE, DRESSING C/D/I, NO BLOOD IN TUBING. PPP. DENIES NEEDS. CALL LIGHT WITHIN REACH. SEE FLOW SHEET FOR COMPLETE ASSESSMENT. WILL CONTINUE TO MONITOR.
[2018-06-05] VITALS (64 sets, daily range): BP systolic 108–154; BP diastolic 43–70; Ht 180.3 cm; Wt 85.7 kg
--- NOTE | 2018-06-05 01:00 | NUR ---
C/O PAIN, PRN MORPHINE ADMINISTERED, SEE EMAR FOR DETAILS. NO SIGNS OF HEMATIOMA TO RT GROIN, NO BLOOD IN IABP TUBING, DRESSING C/D/I. PPP. WILL CONTINUE TO MONITOR. CALL LIGHT WITHIN REACH.
[2018-06-05 01:31] LABS: HEMATOCRIT 35.5 % (42.0-54.0); HEMOGLOBIN 12.4 g/dL (13.5-17.5); MCH 32.5 pg (26.0-34.0); MCHC 34.9 g/dL (31.0-37.0); MCV 92.9 fL (80.0-100.0); RBC 3.82 10x6/uL (4.20-6.10); RDW 12.7 % (11.5-14.5); WBC 11.5 10x3/uL (4.8-10.8)
--- NOTE | 2018-06-05 02:00 | NUR ---
RESTING, NO ACUTE DISTRESS NOTED. IABP SITE ASSESSED, NO HEMATOMA, NO BLOOD IN TUBING, DRESSING C/D/I. AUGMENTED PRESSURE 115. WILL CONTINUE TO MONITOR. CALL LIGHT WITHIN REACH.
--- NOTE | 2018-06-05 03:00 | NUR ---
REASSESSMENT COMPLETED PER FLOW SHEET, SEE FOR DETAILS. NO ACUTE CHANGES NOTED. NO HEMATOMA TO RT GROIN, DRESSING C/D/I, NO BLOOD IN IABP TUBING. PPP. DENIES NEEDS. VSS. CALL [facility] WITHIN REACH. WILL CONTINUE TO MONITOR.
--- NOTE | 2018-06-05 04:00 | NUR ---
I&O'S OBTAINED, SEE FLOW SHEET FOR DETAILS. PATIENT DENIES NEEDS. NO HEMATOMA TO RT GROIN, DRESSING C/D/I, NO BLOOD IN IABP TUBING. PPP. WILL CONTINUE TO MONITOR.
--- NOTE | 2018-06-05 04:34 | NUR ---
LAB PERSONNEL AT BEDSIDE OBTAINING BLOOD FOR AM LABS. PATIENT DENIES NEEDS. WILL CONTINUE TO MONITOR.
--- NOTE | 2018-06-05 06:11 | NUR ---
LAB RESULTS FROM [facility] STILL PENDING, CALLED AND SPOKE TO LAB PERSONNEL, THEY STATED THEY WILL CHECK ON IT AND GET THEM SOME SOON POSSIBLE.
[2018-06-05 06:17] LABS: BASOPHILS 0.1 % (0-2); EOSINOPHILS 0.9 % (0-7); HEMOGLOBIN 11.9 g/dL (13.5-17.5); IMMATURE GRANULOCYTES 0.2 % (0-5); LYMPHOCYTES 14.2 % (15-50); MCH 32.6 pg (26.0-34.0); MCV 93.2 fL (80.0-100.0); MEAN PLATELET VOLUME 9.4 fL (7.4-10.4); MONOCYTES 7.1 % (2-11); NEUTROPHILS 77.5 % (40-80); PLATELET COUNT 106 10x3/uL (130-400); RBC 3.65 10x6/uL (4.20-6.10); RDW 12.7 % (11.5-14.5); WBC 10.8 10x3/uL (4.8-10.8)
[2018-06-05 06:27] LABS: ALBUMIN 2.6 g/dL (3.4-5.0); ALKALINE PHOSPHATASE 42 U/L (46-116); ALT (SGPT) 21 U/L (10-68); BILIRUBIN - TOTAL 1.43 mg/dL (0.2-1.3); CALCIUM 7.2 mg/dL (8.5-10.1); CARBON DIOXIDE 27.1 mmol/L (21.0-32.0); CHLORIDE - SERUM 101 mmol/L (98-107); CREATININE - SERUM 0.9 mg/dL (0.6-1.3); GLUCOSE 139 mg/dL (74-106); POTASSIUM - SERUM 3.9 mmol/L (3.5-5.1); PROTEIN - SERUM 5.3 g/dL (6.4-8.2); SODIUM 136 mmol/L (136-145); eGFR NON AFRICAN AMERICAN 86 mL/min (90-120)
[2018-06-05 06:28] LABS: CALC OSMOLALITY 272 mosm/kg (275-300); UREA NITROGEN 11 mg/dL (7-18)
[2018-06-05 06:33] LABS: MAGNESIUM - SERUM 1.7 mg/dL (1.8-2.4)
--- NOTE | 2018-06-05 06:44 | NUR ---
APTT 65.3 NO RATE CHANGE PER PROTOCOL. PATIENT DENIES NEEDS. WILL CONTINUE TO MONITOR. CALL LIGHT WITHIN REACH.
--- NOTE | 2018-06-05 07:52 | NUR ---
REC'D CALL FROM DR LION. REC'D ORDERS TO DC HEPARIN GTT. GTT TURNED OFF.
--- NOTE | 2018-06-05 09:01 | NUR ---
PT C/O NAUSEA. ZOFRAN GIVEN. DR HERMOSILLO AT BS. MIDLINE [PLACED RUE BY VASCULAR ACCESS NURSE.
--- NOTE | 2018-06-05 09:55 | NUR ---
DR LION PULLED IABP OUT AT BS. FEM STOP APPLIED. FENTANYL 100MCG GIVEN ORDERED.
--- NOTE | 2018-06-05 11:03 | NUR ---
CONTINUE TO ASSESS FEMSTOP AND PULSES. PETAL PULSES PALP. DECREASED PRESSURE OFF OF FEMSTOP BY 1/2. NO BLEEDING NOTED.
--- NOTE | 2018-06-05 13:24 | NUR ---
FEM STOP TAKEN OFF. PPP. NO BLEEDING AT IABP EXIT SITE. NO HEMATOMA. BATH AND LINENS CHANGED.
--- NOTE | 2018-06-05 16:44 | NUR ---
PT C/O REMY. TYLENOL GIVEN. PUPLES EQUAL AND REACTIVE.
--- NOTE | 2018-06-05 17:45 | NUR ---
PT REPORTS H/A IMPROVED ON SCALE 1 TO 10 IS NOW A 2 FROM A 5.
--- NOTE | 2018-06-05 19:15 | NUR ---
REC'D TO CARE, FISHING ACCESSORIES MAKER PER FLOWSHEET. PT AWAKE AND ORIENTED. VERY [place]. R GROIN SITED C/D/I. IVFS INFUSING TO R UPPER ARM MIDLINE, DSG C/D/I - SEE FLOWSHEET. CHOUDHURY CATH PATENE WITH SUKHWINDER URINE NOTED. PT WITH PRODUCTIVE COUGH - USES YANKAUER. ALARMS ON AND C/L IN REACH.
--- NOTE | 2018-06-05 21:00 | NUR ---
NO VISITORS. PT RESTING QUIETLY WITH EYES CLOSED.
--- NOTE | 2018-06-05 23:15 | NUR ---
REASSESSMENT PER FLOWSHEET, NO ACUTE CHANGES. REPOSITIONS SELF IN BED. DENIES PAIN OR NEEDS. ALARMS ON AND C/L IN REACH.
[2018-06-06] VITALS (9 sets, daily range): BP systolic 106–151; BP diastolic 47–75
--- NOTE | 2018-06-06 01:39 | NUR ---
CM - AFIB RATE 90-110. DR. CAMI PADGETT.
--- NOTE | 2018-06-06 01:42 | NUR ---
DR. ALMANZA NOTIFIED OF AFIB AND POX 88-91%. NEW ORDERS REC'D.
--- NOTE | 2018-06-06 01:45 | NUR ---
CORDARONE BOLUS GIVEN PER ORDER AND GTT INCREASED TO 1MG/MIN.
--- NOTE | 2018-06-06 03:15 | NUR ---
REASSESSMENT PER FLOWSHEET, NO ACUTE CHANGES. PT RESTING QUIETLY, NO SIGN OF DISTRESS. CM - CAF 80-90S. ALARMS ON AND C/L IN REACH.
--- NOTE | 2018-06-06 05:11 | NUR ---
PT AWAKE, WATCHING TV. REPORTS "JUST DONT FEEL GOOD". DENIES NEED FOR PAIN OR NAUSEA MED. COOL CLOTH TO FOREHEAD. ALARSM ON AND C/L IN REACH.
[2018-06-06 05:40] LABS: HEMATOCRIT 33.4 % (42.0-54.0); HEMOGLOBIN 11.8 g/dL (13.5-17.5); MCH 32.4 pg (26.0-34.0); MCHC 35.3 g/dL (31.0-37.0); MCV 91.8 fL (80.0-100.0); MEAN PLATELET VOLUME 9.2 fL (7.4-10.4); RBC 3.64 10x6/uL (4.20-6.10); RDW 12.5 % (11.5-14.5); WBC 11.9 10x3/uL (4.8-10.8)
[2018-06-06 07:30] LABS: CALC OSMOLALITY 269 mosm/kg (275-300); CALCIUM 7.8 mg/dL (8.5-10.1); CARBON DIOXIDE 23.9 mmol/L (21.0-32.0); CHLORIDE - SERUM 98 mmol/L (98-107); CREATININE - SERUM 0.9 mg/dL (0.6-1.3); GLUCOSE 170 mg/dL (74-106); MAGNESIUM - SERUM 1.9 mg/dL (1.8-2.4); POTASSIUM - SERUM 3.8 mmol/L (3.5-5.1); SODIUM 132 mmol/L (136-145); eGFR NON AFRICAN AMERICAN 86 mL/min (90-120)
[2018-06-06 07:34] LABS: PHOSPHOROUS 1.2 mg/dL (2.5-4.9); UREA NITROGEN 15 mg/dL (7-18)
--- NOTE | 2018-06-06 07:52 | NUR ---
PHOSPHORUS LAB 1.2. DR. HERMOSILLO PAGED AT THIS TIME.
--- NOTE | 2018-06-06 08:10 | NUR ---
ZOFRAN GIVEN FOR NAUSEA AT THIS TIME. ON ELECTROLYTE PROTOCOL. 20MM OF SODIUM PHOSPATE INITIATED PER PROTOCOL. BREAKFAST TRAY DELIVERED AND SET UP. NO FURTHER NEEDS. WILL CONTINUE TO MONITOR.
--- NOTE | 2018-06-06 08:29 | OP ---
PATIENT NAME: NILSON STONE MEDICAL RECORD: [id number] :36 LOCATION:[facility] ADMISSION DATE:06/02/18 SURGEON: WICHO RENO MD DATE OF OPERATION: 06/03/2018 PROCEDURES: Catheterization, PTCA, stenting, intraaortic ballon pump placemnety. Left heart catheterization, selective coronary angiography, right femoral artery approach. CATHETERS USED: A 5-Croatian sheath, 5/4 left and right Dotty, 5/4 pig. We proceeded to do emergent SOFTLINES SUPERVISOR and stenting of the LAD and circumflex. FINDINGS: Left ventriculography in 30-degree VICTOR view shows normal wall motion and normal systolic function. CORONARY ANATOMY: LEFT MAIN: Left main is free of disease. LAD: Has about 80% stenosis proximal including to the previously placed stent. It was 80% discrete stenosis to the stent. The circumflex was better than 99% stenosed. RIGHT CORONARY ARTERY: Had distal disease, question amenable to coronary intervention. As we were preparing for intervention, marked ST-segment elevation was noted in the anterior leads. We then took warp drawer films for intervention. This showed actually occlusion of the LAD with slow flow down the circumflex. The patient became markedly hypotensive requiring IV epinephrine then were proceeded to urgent revascularization of the LAD. We used 2.5 balloon for predeployment and then placed a distal 3.0 x 12-mm Integrity stent and a long 3.0 x 30 Integrity non-drug eluting stent, both placement at 14 atmospheres. Next, the subtotal circumflex was addressed with a predeployment, the same 2.5 x 12-mm [place] balloon and then a long 30 mm x 3.0 Integrity non-drug eluting stent. After the end of the procedure, the patient was still markedly hypotensive with occlusion of the LAD, secondary occlusion of the LAD and intraaortic balloon pump placement was placed in the right femoral artery under fluoroscopic guidance without difficulty. Patient began at 2:1 and patient begun on Dobutrex drip. He did receive 2 infusions of Integrilin secondary to concerns of microscopic embolus with slow flow even at the end of the procedure post revascularization. Heparin drip was started as well. The patient is still critically ill. This was discussed with the family. TRANSINT:[id number] Voice Confirmation ID: [id number] DOCUMENT ID: [id number] WICHO RENO MD at 0829 CC: [id number] DICTATION DATE: 06/03/18 1050 MARINE SERVICE MANAGER: 06/03/18 1414 ADM IN [place] [id number] [place] [id number]
--- NOTE | 2018-06-06 08:46 | NUR ---
SPOKE WITH DR. GALLAGHER. ORDERED AMIODARONE 200MG PO BID.
--- NOTE | 2018-06-06 09:46 | NUR ---
REPORT CALLED IN TO ICU. SPOKE WITH BITA RODRIGUEZ.
--- NOTE | 2018-06-06 10:07 | NUR ---
PT ARRIVED ON UNIT VIA WHEELCHAIR, HOOKED TO MONITORS, ALERT AND ORIENTED, ALL VSS, CALL LIGHT IN REACH
--- NOTE | 2018-06-06 10:55 | MORECARE ---
CASE MANAGEMENT DISCHARGE SUMMARY PATIENT: NILSON STONE UNIT: [id number] ADM DATE: 06/02/18 AGE: 77 : 38 SEX: M ROOM/BED: D.2309 AUTHOR: REBECCA DAILEY PHYSICIAN: REFERRING PHYSICIAN: JAZMIN MCKENNA MD DATE OF SERVICE: 06/06/18 Discharge Plan Patient Name: NILSON STONE [facility] [facility] 1940 Planned Disposition: Home Anticipated Discharge Date: Discharge Date: Expected LOS: Initial Reviewer: [email or web address] Initial Review Date: 06/02/2018 Generated: 06/06/18 11:55 am DCPIA - Discharge Planning Initial Assessment Updated by [email or web address]: Karena Francis on 06/06/18 10:55 am * Is the patient Alert and Oriented? Yes * How many steps to enter\exit or inside your home? * PCP DR. MANSOOR CAMARA * Pharmacy [facility] IN [place] * Preadmission Environment Home with Family * ADLs Independent * Equipment Rolling Walker * Other Equipment WHEELCHAIR, CANE * List name and contact numbers for known caregivers / representatives who currently or will assist patient after discharge: MORENA STONE- SPOUSE- [phone] * Verbal permission to speak to the caregivers and representatives has been obtained from the patient. Yes * Community resources currently utilized None * Additional services required to return to the preadmission environment? No * Can the patient safely return to the preadmission environment? Yes * Has this patient been hospitalized within the prior 30 days at any hospital? No Patient Name: NILSON STONE Page [id number] at 1055 All edits/amendments must be made on the electronic document DICTATION DATE: 06/06/18 1055 PHYSICIAN CODER: ITA 06/06/18 1055 RPT#: [id number] DC DATE: STATUS: ADM IN [facility] [address] [place] [address] END OF REPORT
--- NOTE | 2018-06-06 11:03 | MORECARE ---
CASE MANAGEMENT DISCHARGE SUMMARY PATIENT: NILSON STONE UNIT: [id number] ADM DATE: 06/02/18 AGE: 77 : 38 SEX: M ROOM/BED: D.2309 AUTHOR: ASHLIE,DOC PHYSICIAN: REFERRING PHYSICIAN: JAZMIN MCKENNA MD DATE OF SERVICE: 06/06/18 Discharge Plan Patient Name: NILSON STONE Facility: [facility]:[place] : 1940 Planned Disposition: Home Anticipated Discharge Date: Discharge Date: Expected LOS: Initial Reviewer: [email or web address] Initial Review Date: 06/02/2018 Generated: 06/06/18 12:03 pm Comments DCP- Discharge Planning Updated by [email or web address]: Karena Francis on 06/06/18 9:[address] Patient Name: NILSON STONE Admission Status: Urgent Accout number: [id number] Admission Date: 06-02-2018 : 1940 Admission Diagnosis:NON-ST ELEVATION (NSTEMI) MYOCARDIAL INFARCTION Attending: JAZMIN MCKENNA Current LOS: 4 Anticipated DC Date: Planned Disposition: Home Primary Insurance: MEDICARE A & B Discharge Planning Comments: CM met with patient and spouse at bedside after obtaining verbal consent. Patient states he plans on returning home after discharge with his . Patient states he will have family transport him home via private vehicle. Patient denies any discharge needs at this time. CM will continue to follow and assist as needed for discharge planning / needs. Occupational Medicine Officer: Karena Francis DCPIA - Discharge Planning Initial Assessment Updated by [email or web address]: Karena Francis on 06/06/18 10:55 am * Is the patient Alert and Oriented? Yes * How many steps to enter\exit or inside your home? * PCP DR. MANSOOR CAMARA * Pharmacy [facility] IN [place] * Preadmission Environment Home with Family * ADLs Independent * Equipment Rolling Walker * Other Equipment WHEELCHAIR, CANE * List name and contact numbers for known caregivers / representatives who currently or will assist patient after discharge: MORENA STONE- SPOUSE- [phone] * Verbal permission to speak to the caregivers and representatives has been obtained from the patient. Yes * Community resources currently utilized None * Additional services required to return to the preadmission environment? No * Can the patient safely return to the preadmission environment? Yes * Has this patient been hospitalized within the prior 30 days at any hospital? No Last DP export: 06/06/18 9:55 am Patient Name: NILSON STONE Page [id number] at 1103 All edits/amendments must be made on the electronic document DICTATION DATE: 06/06/181101 RECORDS TECHNICIAN: ITA 06/06/181101 RPT#: [id number] DC DATE: STATUS: ADM IN [facility] [address] [place] [address] END OF REPORT
--- NOTE | 2018-06-06 13:15 | NUR ---
PT HERE TO WALK PT, PT TOLERATED WELL
--- NOTE | 2018-06-06 13:48 | NUR ---
REPORT CALLED. TRANSFERRED VIA WHEELCHAIR TO 2116.
--- NOTE | 2018-06-06 14:20 | NUR ---
RECIVED FROM ICU PER BED. TO ROOM 211
--- NOTE | 2018-06-06 16:43 | NUR ---
FAMILY AT SIDE. WITHOUT CHANGES NOTED AT THIS TIME.
--- NOTE | 2018-06-06 19:36 | NUR ---
PT RESTING IN BED. NAME AND DATE PLACED ON BOARD. PT IS PALA, ON 6L HIGH FLOW NC. HAS A CHOUDHURY WITH STRAW COLORED URINE. PT DENIES ANY NEEDS AT THIS TIME. NO S/S OF DISTRESS. BEDLOW AND CALL LIGHT INREACH. WILL CPOC
[2018-06-06 23:17] LABS: APPEARANCE HAZY (CLEAR); BILIRUBIN NEGATIVE (NEGATIVE); COLOR DK YELLOW (YELLOW); GLUCOSE NEGATIVE (NEGATIVE); KETONE NEGATIVE (NEGATIVE); NITRITE NEGATIVE (NEGATIVE); PROTEIN 1+ mg/dL (NEGATIVE); SPECIFIC GRAVITY 1.015 (1.005-1.020); UROBILINOGEN NORMAL (NORMAL)
[2018-06-06 23:25] LABS: WHITE CELLS - URINE 0-5 /hpf (0-5)
[2018-06-06 23:26] LABS: BACTERIA FEW /hpf (NONE SEEN); EPITHELIAL CELLS 0-5 /hpf (0-5)
--- NOTE | 2018-06-06 23:48 | NUR ---
ASSISTED PT WITH REPOSITIONING, UA COLLECTED AND SENT TO LAB. PT DENIES ANY NEEDS. NO S/S OF DISTRESS. PT WILL CALL FOR ASSIST WHEN NEEDED.WILL CPOC
--- NOTE | 2018-06-07 02:31 | NUR ---
PT IS RUNNING 81 CONTROLLED A-FIB ON THE MONITOR
[2018-06-07 04:20] LABS: BASOPHILS 0.1 % (0-2); EOSINOPHILS 1.6 % (0-7); HEMATOCRIT 33.4 % (42.0-54.0); HEMOGLOBIN 11.5 g/dL (13.5-17.5); IMMATURE GRANULOCYTES 0.4 % (0-5); LYMPHOCYTES 13.9 % (15-50); MCH 31.8 pg (26.0-34.0); MCHC 34.4 g/dL (31.0-37.0); MCV 92.3 fL (80.0-100.0); MONOCYTES 9.8 % (2-11); NEUTROPHILS 74.2 % (40-80); PLATELET COUNT 113 10x3/uL (130-400); RBC 3.62 10x6/uL (4.20-6.10); RDW 12.5 % (11.5-14.5); WBC 10.4 10x3/uL (4.8-10.8)
[2018-06-07 04:41] LABS: ALBUMIN 2.3 g/dL (3.4-5.0); ALKALINE PHOSPHATASE 42 U/L (46-116); ALT (SGPT) 19 U/L (10-68); BILIRUBIN - TOTAL 2.21 mg/dL (0.2-1.3); CALC OSMOLALITY 273 mosm/kg (275-300); CALCIUM 7.9 mg/dL (8.5-10.1); CARBON DIOXIDE 27.9 mmol/L (21.0-32.0); CHLORIDE - SERUM 99 mmol/L (98-107); CREATININE - SERUM 0.9 mg/dL (0.6-1.3); GLUCOSE 130 mg/dL (74-106); POTASSIUM - SERUM 4.2 mmol/L (3.5-5.1); PROTEIN - SERUM 5.8 g/dL (6.4-8.2); SODIUM 135 mmol/L (136-145); UREA NITROGEN 17 mg/dL (7-18); eGFR NON AFRICAN AMERICAN 86 mL/min (90-120)
--- NOTE | 2018-06-07 06:20 | NUR ---
EDUCATION GIVEN ON PROTONIX. PT VERBALIZED UNDERSTANDING. PT DENIES ANY NEEDS. NO S/S OF DISTRESS. BEDLOW AND CALL LIGHT IN REACH. PT WILL CALL FOR ASSIST WHEN NEEDED. 6L HIGH FLOW NC, NOURISHMENT IN REACH. WILL CPOC
[2018-06-07 07:55] VITALS: BP 123/54
--- NOTE | 2018-06-07 09:43 | NUR ---
TELEMETRY CAF. UP SOB WITH CALL LIGHT IN REACH. FAMILY AT BS. WILL MONITOR NEEDS.
--- NOTE | 2018-06-07 10:04 | NUR ---
RT TO WEAN 02.
--- NOTE | 2018-06-07 10:42 | NUR ---
KEI AGUSTIND BY MICHEAL. RT WEANED 02 TO 4L. FAMILY AT BS. WILL CONT. TO MONITOR.
[2018-06-07 11:10] VITALS: BP 135/60
--- NOTE | 2018-06-07 11:10 | NUR ---
UP AMBULATING WITH PT ASSIST.
--- NOTE | 2018-06-07 15:19 | NUR ---
UP AMBULATING WITH NS ASSIST.
[2018-06-07 15:28] VITALS: BP 130/61
--- NOTE | 2018-06-07 15:42 | NUR ---
02 SAT 95% AFTER AMBULATING ON 02 3L HIGH FLOW. 02 DECREASD TO 2L NC. WILL MONITOR.
--- NOTE | 2018-06-07 16:19 | NUR ---
02 SAT 92% ON 4L NC AT REST. WILL CONT. TO MONITOR.
--- NOTE | 2018-06-07 19:37 | NUR ---
RESUMED CARE OF PT, LYING IN BED RESPIRATIONS EVEN AND UNLABORED ON 4LPM VIA NC. 105 UCAF ON TELEMETRY. RIGHT UPPER ARM MIDLINE SALINE LOCKED. NO NEEDS VOICED AT THIS TIME, CALL LIGHT IN REACH. SEE NURSE ASSESSMENT.
[2018-06-07 20:10] VITALS: BP 106/55
[2018-06-08] VITALS: BP 110/54
[2018-06-08 04:00] VITALS: BP 128/59
--- NOTE | 2018-06-08 04:25 | NUR ---
VENDING MACHINE FILLER AT BEDSIDE TO OBTAIN VITALS, CALL LIGHT IN REACH. WILL CONTINUE WITH PLAN OF CARE.
--- NOTE | 2018-06-08 05:05 | NUR ---
72 SR ON TELEMETRY
[2018-06-08 05:54] LABS: BASOPHILS 0.1 % (0-2); EOSINOPHILS 5.7 % (0-7); HEMATOCRIT 32.4 % (42.0-54.0); HEMOGLOBIN 11.3 g/dL (13.5-17.5); IMMATURE GRANULOCYTES 0.4 % (0-5); LYMPHOCYTES 20.8 % (15-50); MCH 31.7 pg (26.0-34.0); MCHC 34.9 g/dL (31.0-37.0); MEAN PLATELET VOLUME 8.9 fL (7.4-10.4); PLATELET COUNT 122 10x3/uL (130-400); RBC 3.56 10x6/uL (4.20-6.10); RDW 12.6 % (11.5-14.5); WBC 8.2 10x3/uL (4.8-10.8)
[2018-06-08 06:27] LABS: ALBUMIN 2.3 g/dL (3.4-5.0); ALKALINE PHOSPHATASE 45 U/L (46-116); CALC OSMOLALITY 278 mosm/kg (275-300); CALCIUM 7.5 mg/dL (8.5-10.1); CARBON DIOXIDE 27.1 mmol/L (21.0-32.0); CHLORIDE - SERUM 102 mmol/L (98-107); CREATININE - SERUM 0.8 mg/dL (0.6-1.3); GLUCOSE 135 mg/dL (74-106); POTASSIUM - SERUM 3.7 mmol/L (3.5-5.1); PROTEIN - SERUM 5.3 g/dL (6.4-8.2); SODIUM 138 mmol/L (136-145); UREA NITROGEN 16 mg/dL (7-18); eGFR NON AFRICAN AMERICAN > 90 mL/min (90-120)
[2018-06-08 06:35] LABS: ALT (SGPT) 27 U/L (10-68)
[2018-06-08 09:33] VITALS: BP 142/61
--- NOTE | 2018-06-08 10:14 | NUR ---
URINE SPECIMEN COLLECTED AND TAKEN TO LAB.
[2018-06-08 10:41] LABS: APPEARANCE CLEAR (CLEAR); BILIRUBIN NEGATIVE (NEGATIVE); COLOR DK YELLOW (YELLOW); GLUCOSE 250 mg/dL (NEGATIVE); KETONE NEGATIVE (NEGATIVE); NITRITE NEGATIVE (NEGATIVE); PH 6.5 (5.0-6.0); PROTEIN NEGATIVE (NEGATIVE)
[2018-06-08 12:18] VITALS: BP 124/64
--- NOTE | 2018-06-08 12:51 | NUR ---
Nutrition follow-up: Visited with pt during rounds. Pt happy with meals and reports a good appetite. PO intake ~67% of last 3 meals Labs reviewed Wt: 189# No BM; physician aware RDN following.
--- NOTE | 2018-06-08 14:00 | NUR ---
PT SP02 95% ON RA PT AMBULATED ON RA AND SP02 DROPPED TO 85% PT AMBULATED ON 3L AND SP02 AT 95%
--- NOTE | 2018-06-08 15:18 | MORECARE ---
CASE MANAGEMENT DISCHARGE SUMMARY PATIENT: NILSON STONE UNIT: [id number] ADM DATE: 06/02/18 AGE: 77 : 38 SEX: M ROOM/BED: D.2117 AUTHOR: ASHLIE,DOC PHYSICIAN: REFERRING PHYSICIAN: JAZMIN MCKENNA MD DATE OF SERVICE: 06/08/18 Discharge Plan Patient Name: NILSON STONE Facility: [facility]:[place] : 1940 Planned Disposition: Home Anticipated Discharge Date: 06/08/18 Discharge Date: Expected LOS: 6 Initial Reviewer: [email or web address] Initial Review Date: 06/02/2018 Generated: 06/08/18 4:17 pm Comments DCP- Discharge Planning Updated by [email or web address]: Karena Francis on 06/06/18 9:[address] Patient Name: NILSON STONE Admission Status: Urgent Accout number: [id number] Admission Date: 06-02-2018 : 1940 Admission Diagnosis:NON-ST ELEVATION (NSTEMI) MYOCARDIAL INFARCTION Attending: JAZMIN MCKENNA Current LOS: 4 Anticipated DC Date: Planned Disposition: Home Primary Insurance: MEDICARE A & B Discharge Planning Comments: CM met with patient and spouse at bedside after obtaining verbal consent. Patient states he plans on returning home after discharge with his . Patient states he will have family transport him home via private vehicle. Patient denies any discharge needs at this time. CM will continue to follow and assist as needed for discharge planning / needs. Jewel Bearing Polisher: Karena Francis DCPIA - Discharge Planning Initial Assessment Updated by [email or web address]: Karena Francis on 06/06/18 10:55 am * Is the patient Alert and Oriented? Yes * How many steps to enter\exit or inside your home? * PCP DR. MANSOOR CAMARA * Pharmacy [facility] IN [place] * Preadmission Environment Home with Family * ADLs Independent * Equipment Rolling Walker * Other Equipment WHEELCHAIR, CANE * List name and contact numbers for known caregivers / representatives who currently or will assist patient after discharge: MORENA STONE- SPOUSE- [phone] * Verbal permission to speak to the caregivers and representatives has been obtained from the patient. Yes * Community resources currently utilized None * Additional services required to return to the preadmission environment? No * Can the patient safely return to the preadmission environment? Yes * Has this patient been hospitalized within the prior 30 days at any hospital? No External Providers External Provider: Lauro Roque Contact Date: 06/08/2018 Service Request Date: Service Type: Resolution: Reviewer: Comments: Last DP export: 06/06/18 10:03 am Patient Name: NILSON STONE Page [phone] at 1518 All edits/amendments must be made on the electronic document DICTATION DATE: 06/08/181516 TOBACCO WETTER: ITA 06/08/181516 RPT#: [id number] DC DATE: STATUS: ADM IN [facility] [address] [place] [address] END OF REPORT
--- NOTE | 2018-06-08 15:26 | MORECARE ---
CASE MANAGEMENT DISCHARGE SUMMARY PATIENT: NILSON STONE UNIT: [id number] ADM DATE: 06/02/18 AGE: 77 : 38 SEX: M ROOM/BED: D.2117 AUTHOR: ASHLIE,DOC PHYSICIAN: REFERRING PHYSICIAN: JAZMIN MCKENNA MD DATE OF SERVICE: 06/08/18 Discharge Plan Patient Name: NILSON STONE Facility: [facility]:[place] : 1940 Planned Disposition: Home Anticipated Discharge Date: 06/08/18 Discharge Date: Expected LOS: 6 Initial Reviewer: [email or web address] Initial Review Date: 06/02/2018 Generated: 06/08/18 4:26 pm Comments DCP- Discharge Planning Updated by [email or web address]: Parmjit Fallon on 06/08/18 2:[address] Patient Name: NILSON STONE Admission Status: Urgent Accout number: [id number] Admission Date: 06-02-2018 : 1940 Admission Diagnosis:NON-ST ELEVATION (NSTEMI) MYOCARDIAL INFARCTION Attending: JAZMIN MCKENNA Current LOS: 6 Anticipated DC Date: 06-08-2018 Planned Disposition: Home Primary Insurance: MEDICARE A & B Discharge Planning Comments: CM RECEIVED OXYGEN ORDER, MET WITH PT IN ROOM TO DISCUSS DISCHARGE NEEDS AND PLANNING. CM DISCUSSED AVAILABILITY OF HOME HEALTH, REHAB SERVICES AND MEDICAL EQUIPMENT. PT WANTS OXYGEN FROM [facility] IN [place], CHOICE LISTING PROVIDERD AND CHOICE FORM SIGNED. PT'S FAMILY TO TRANSPORT HOME AT DISCHARGE TODAY. IMPORTANT MESSAGE FROM MEDICARE PROVIDED AND EXPLAINED. CM CALLED [facility], , SPOKE TO MIKE WHO TOOK OXYGEN ORDER. AND REFERRAL CM FAXED OXYGEN REFERRAL TO [facility] AT [phone] AND [phone]. [facility] TO ARRANGE PORTABLE OXYGEN TO [facility] ROOM AND [facility] WILL ARRANGE HOME OXYGEN DELIVERY AFTER PT ARRIVES HOME TODAY. BEDSIDE NURSE AND PT NOTIFIED. Package Pick Up: Parmjit Fallon Appended by Parmjit Fallon on 06/08/2018 15:24 OPERATIONS SUPPORT REPRESENTATIVE: PHYSICAL ADDRESS FOR DISCHARGE IS [address] [place] [address], [place] [address]. PARMJIT BETTYE, CASE MANAGEMENT DCP- Discharge Planning Updated by [email or web address]: Karena Francis on 06/06/18 9:[address] Patient Name: NILSON STONE Admission Status: Urgent Accout number: [id number] Admission Date: 06-02-2018 : 1940 Admission Diagnosis:NON-ST ELEVATION (NSTEMI) MYOCARDIAL INFARCTION Attending: JAZMIN MCKENNA Current LOS: 4 Anticipated DC Date: Planned Disposition: Home Primary Insurance: MEDICARE A & B Discharge Planning Comments: CM met with patient and spouse at bedside after obtaining verbal consent. Patient states he plans on returning home after discharge with his . Patient states he will have family transport him home via private vehicle. Patient denies any discharge needs at this time. CM will continue to follow and assist as needed for discharge planning / needs. Package Pick Up: Karena Francis DCPIA - Discharge Planning Initial Assessment Updated by [email or web address]: Karena Penny on 06/06/18 10:55 am * Is the patient Alert and Oriented? Yes * How many steps to enter\exit or inside your home? * PCP DR. MANSOOR CAMARA * Pharmacy [facility] IN [place] * Preadmission Environment Home with Family * ADLs Independent * Equipment Rolling Walker * Other Equipment WHEELCHAIR, CANE * List name and contact numbers for known caregivers / representatives who currently or will assist patient after discharge: MORENA STONE- SPOUSE- [phone] * Verbal permission to speak to the caregivers and representatives has been obtained from the patient. Yes * Community resources currently utilized None * Additional services required to return to the preadmission environment? No * Can the patient safely return to the preadmission environment? Yes * Has this patient been hospitalized within the prior 30 days at any hospital? No Coverage Notice Reviewer: [email or web address] Fallon Notice Issued Date-Time: 06/08/2018 14:30 Notice Type: IM Discharge Notice Notice Delivered To: Patient Relationship to Patient: Load Out Person Name: Delivery Method: HAND - Hand Delivered Sarina Days: Prior Verbal Notification: Recipient Understood Notice: Yes Recipient Signature: Yes Med Rec Note Co-signed by Attending: Coverage Notice Comment: Reviewer: [email or web address] Fallon Notice Issued Date-Time: 06/08/2018 14:30 Notice Type: Patient Choice Letter Notice Delivered To: Patient Relationship to Patient: Load Out Person Name: Delivery Method: HAND - Hand Delivered Sarina Days: Prior Verbal Notification: Recipient Understood Notice: Yes Recipient Signature: Yes Med Rec Note Co-signed by Attending: Coverage Notice Comment: [facility] Last DP export: 06/08/18 2:18 pm Patient Name: NILSON STONE Page [phone] at 1526 All edits/amendments must be made on the electronic document DICTATION DATE: 06/08/18 1526 METAL DOOR ASSEMBLER: ITA 06/08/18 1526 RPT#: [id number] DC DATE: STATUS: ADM IN [facility] [address] [place] [address] END OF REPORT
[2018-06-08] MEDS ORDERED: AMIODARONE HCL200 MG PO (15:32)
[2018-06-08] MEDS ORDERED: MIRALAX17 GM PO (15:32)
[2018-06-08] MEDS ORDERED: PLAVIX75 MG PO (15:32)
[2018-06-08] MEDS ORDERED: BAYER CHEWABLE81 MG PO (16:14)
--- NOTE | 2018-06-08 16:39 | NUR ---
IV AND TELEMETRY DCD. DC PLANS GIVEN. 02 DELIVERED. ESCORTED TO CAR BY W/C.
--- NOTE | 2018-06-09 12:22 | EC ---
PATIENT:NILSON SOTNE DATE OF SERVICE: 06/02/18 SEX: M MEDICAL RECORD: [id number] DATE OF : [birth year] LOCATION:D.M2 D.211 AGE OF PATIENT: 77 ADMISSION DATE: 06/02/18 REFERRING PHYSICIAN: INTERPRETING PHYSICIAN: WICHO RENO MD ECHOCARDIOGRAM REPORT ECHO CHARGES 5 ECHO LIMITED Date: 06/06/18 CLINICAL DIAGNOSIS: ACUTE ND ECHOCARDIOGRAPHIC MEASUREMENTS (adult normal given) AC root (d.<3.7cm) 3.3 cm LV Septum d (<1.2 cm> 1.2 cm Valve Excursion 1.6 cm LV Septum (systole) 1.4 cm Left Atria (s.<4.0cm> 3.0 cm LVPW d(<1.2cm) 1.3 cm RV (d.<2.3cm) 2.7 cm LVPW (sytole) 1.5 cm LV diastole(<5.6CM) 4.1 cm MV E-F(>70mm/sec) 3.2 cm LV systole 3.2 cm LVOT Diameter 1.6 cm MV exc.(>10mm) cm Est.ejection fraction (50-75%) % DOPPLER: LVIT cm/sec A cm/sec E cm/sec LA cm/sec RVSP 26 mmHg LVOT cm/sec AOP1/2T m/s Asc. Ao cm/sec RVOT cm/sec RA cm/sec PA cm/sec AV Gradient Peak mmHg AV Mean mmHg AV Area cm MV Gradient Peak mmHg MV Mean mmHg MV Area cm COMMENTS: Hand Plug Shaper: 2 NIKOS MANNING Academic Intern: 3 Dr. Mejia TAPE# PACS Pericardial Effusion N DATE OF SERVICE: This is a limited 2-D and color flow only. Grossly, LV internal dimensions are normal. Wall motion is normal. EF is greater than 55%. The aortic valve is tricuspid with good valve excursion. No significant AI. Left atrium grossly appears normal in all dimensions. Mitral valve has good excursion, no more than mild MR. Right-sided chambers are grossly normal. No more than mild TR. ECHOCARDIOGRAM REPORT [id number] NILSON STONE TRANSINT:[id number] Voice Confirmation ID: [id number] DOCUMENT ID: [id number] WICHO RENO MD at 1222 CC: [id number] DICTATION DATE: 06/06/18 1333 ORIENTAL RUG REPAIRER: 06/06/18 1643 DIS IN 06/08/18 [facility] [address] [place] [address]
== END 2018-06-08 16:48 | disposition home or self-care (01) | DRG 270 ==
LOC: D.M2 16:53 → D.CVICU 17:55 → D.ICU 06-06 10:07 → D.M2 06-06 13:49
PROVIDERS: Family Medicine; Internal Medicine Interventional Cardiology; ADMIT Internal Medicine Nephrology
PROC: B2111ZZ Fluoroscopy of Multiple Coronary Arteries using Low Osmolar Contrast (ICD-10-PCS; 2018-06-03)
PROC: B2151ZZ Fluoroscopy of Left Heart using Low Osmolar Contrast (ICD-10-PCS; 2018-06-03)
PROC: 4A023N7 Measurement of Cardiac Sampling and Pressure, Left Heart, Percutaneous Approach (ICD-10-PCS; 2018-06-03)
PROC: 5A02210 Assistance with Cardiac Output using Balloon Pump, Continuous (ICD-10-PCS; 2018-06-03 08:42)
PROC: 02713FZ Dilation of Coronary Artery, Two Arteries with Three Intraluminal Devices, Percutaneous Approach (ICD-10-PCS; 2018-06-03 08:42)
PROC: 05HY33Z Insertion of Infusion Device into Upper Vein, Percutaneous Approach (ICD-10-PCS; principal; 2018-06-05)
DX: I21.4 Non-ST elevation (NSTEMI) myocardial infarction (principal); I50.21 Acute systolic (congestive) heart failure; E78.5 Hyperlipidemia, unspecified; I11.0 Hypertensive heart disease with heart failure; I48.91 Unspecified atrial fibrillation; I25.10 Atherosclerotic heart disease of native coronary artery without angina pectoris

== ENCOUNTER 2018-06-18 03:21 | Observation (INO) | payer MEDICARE, BC ==
[~2018-06-18] VITALS: Ht 180.3 cm; Wt 80.8 kg
--- NOTE | ~2018-06-18 | HEMODYNAMI ---
PATIENT:NILSON STONE MEDICAL RECORD: [id number] : 36 LOCATION:[address] ADMISSION DATE: 06/18/18 Generatedon:06/19/20188:54 Patient name: NILSON STONE Patient #: [id number] SSN: : Date of study: 06/19/2018 Page: Of Hemodynamic Procedure Report Patient Data Patient Demographics Procedure consent was obtained First Name: NILSON Gender: Male Last Name: BERTHA : 1940 Patient #: [id number] Age: 77 year(s) Race: Unknown Additional ID: [id number] Contact details Address: [address] [place] [address] State: [place] City: [place] Zip code: [address] Past Medical History Allergies: No known allergies Admission Admission Data Admission Date: 06/18/2018 Admission Time: 6:06 Room #: [facility] Procedure Procedure Types Cath Procedure Diagnostic Procedure LHC LHC w/Coronaries Sedation Charges Moderate Sedation up to 30 minutes PCI Procedure Coronary Stent Coronary Stent Initial Procedure Description Procedure Date Procedure Date: 06/19/2018 Procedure Start Time: 8:26 Procedure End Time: 8:54 Procedure Staff Name Function Dariusz Molina MD Performing Physician Marvin Hammond RT Media Relations Manager Shannon Kirkland RT Monitor Iris Albarado RN Nurse Tiki Perla RT Scrub Ivon Simmons RT Scrub Procedure Data Cath Procedure Fluoroscopy Diagnostic fluoroscopy Total fluoroscopy Time: 5.9 time: 5.9 min min Diagnostic fluoroscopy Total fluoroscopy dose: 829 dose: 829 mGy mGy Contrast Material Contrast Material Type Amount (ml) Isovue 300 123 Entry Location Entry Primary Successful Side Size Upsize Upsize Entry Closure Succes sful Closure Location (Fr) 1 (Fr) 2 (Fr) Remarks Device Remarks Femoral Right 5 Fr 6 Fr Exoseal artery Short Estimated blood loss: 10 ml Diagnostic catheters Device Type Used For End Catheter Placement MULTIPACK JL 4.0 5Fr Left Coronary catheter Angiography MULTIPACK 3DRC 5Fr Right Coronary catheter Angiography MULTIPACK Pigtail 5 Fr LV Angiography catheter Procedure Complications No complications Procedure Medications Medication Administration Route Dosage 0.9% NaCl I.V. 100 ml/hr Oxygen etCO2 Nasal cannula 2 l/min Lidocaine 2% added to field 20 Heparin Flush Bag added to field 2 bags (1000units/500ml NS) Versed I.V. 2 mg Fentanyl I.V. 50 mcg Versed I.V. 1 mg Fentanyl I.V. 25 mcg Heparin Bolus I.V. 8000 units Nitroglycerin IC/IA I.C. 100 mcg Hemodynamics Rest Heart Rate: 60 (bpm) Pressure Samples Time Site Value (mmHg) Purpose Heart Use Rate(bpm) 8:35 LV 118/1,25 EDP 63 Gradients Valve Time Site Site Mean SEP/DFP Peak To Heart Use 1 2 (mmHg) (sec/min) Peak Rate (mmHg) (bpm) Aortic 8:36 LV AO 62 Snapshots Pre Cath Intra NCS Post Cath Vital Signs Time Heart Resp SPO2 etCO2 NIBP (mmHg) Rhythm Pain Sedation Rate (ipm) (%) (mmHg) Status Level (bpm) 8:05:47 62 14 97 37.1 170/87(112) NSR 0 (11) 10(A) , No pain 8:10:13 58 13 100 40.2 167/73(126) NSR 0 (11) 10(A) , No pain 8:14:33 57 13 98 35.6 121/64(93) NSR 0 (11) 10(A) , No pain 8:18:51 56 10 96 25.7 121/60(77) NSR 0 (11) 9(A) , No pain 8:23:07 58 12 97 24.2 116/54(98) NSR 0 (11) 9(A) , No pain 8:27:21 57 11 97 24 108/61(77) NSR 0 (11) 9(A) , No pain 8:31:31 59 12 96 33.3 114/62(87) NSR 0 (11) 9(A) , No pain 8:35:43 58 13 96 30.7 126/63(92) NSR 0 (11) 9(A) , No pain 8:40:01 62 13 97 27 118/61(89) NSR 0 (11) 9(A) , No pain 8:44:17 62 11 96 30 111/53(77) NSR 0 (11) 9(A) , No pain 8:48:27 63 13 97 31.8 93/58(73) NSR 0 (11) 9(A) , No pain 8:52:35 61 15 98 28 112/55(73) NSR 0 (11) 10(A) , No pain Medications Time Medication Route Dose Verified Delivered Reason Notes Effectiveness by by 8:10:56 0.9% NaCl I.V. 100 Dariusz Iris used for ml/hr Jesse Albarado it systems engineer 8:11:03 Oxygen etCO2 2 Dariusz Iris used for Nasal l/min Jesse Albarado procedure cannula RN 8:11:15 Lidocaine 2% added 20ml Dariusz Dariusz for local to vial Jesse Molina MD anesthetic field 8:11:21 Heparin Flush added 2 Dariusz Dariusz used for Bag to bags Jesse Molina MD procedure (1000units/500ml field NS) 8:11:31 Versed I.V. 2 mg Dariusz Iris for sedation Jesse Albarado RN 8:11:40 Fentanyl I.V. 50 Dariusz Iris for sedation mcg Jesse Albarado RN 8:16:02 Fentanyl I.V. 25 Dariusz Iris for sedation mcg Jesse Albarado RN 8:16:52 Versed I.V. 1 mg Dariusz Iris for sedation Jesse Albarado RN 8:40:00 Heparin Bolus I.V. 8000 Dariusz Iris for verifi ed units Jesse Albarado anticoagulation with Dr. MICHAEL Molina 8:46:57 Nitroglycerin I.C. 100 Dariusz Dariusz for IC/IA mcg Jesse Molina MD vasodilation Procedure Log Time Note 7:43:24 Marvin Hammond RT(R) sent for patient. Start room use. 7:43:25 Time tracking: Regular hours (M-F 7:00 - 5:00) 7:43:29 Plan of Care:Hemodynamics will remain stable., Cardiac rhythm will remain stable., Comfort level will be maintained., Respiratory function will remain adequate., Patient/ family verbilizes understanding of procedure., Procedure tolerated without complication., Recovers from procedure without complications.. 7:59:23 Patient received from PCU to CCL 1 Alert and oriented. Tansferred to table in Supine position. 7:59:25 Warm blankets applied, and ekaterina hugger turned on for patient comfort. 7:59:25 Correct patient and procedure confirmed by team. 7:59:27 Signed procedure consent form obtained from patient. 7:59:27 ECG and BP/O2 sat monitors applied to patient. 7:59:29 Full Disclosure recording started 8:04:31 Vital chart was started 8:04:35 Rhythm: sinus rhythm 8:04:43 H&P Date Dictated: 06/18/2018 Within 30 days and on chart.. 8:04:46 Pre-procedure instructions explained to patient. 8:04:47 Pre-op teaching completed and patient verbalized understanding. 8:05:17 Family in patients room. 8:05:26 Patient NPO since Midnight. 8:05:33 Patient allergic to No known allergies 8:05:35 Is the patient allergic to Iodine/contrast media? No. 8:05:39 Is patient on blood thinner?Yes 8:05:42 ACC The patient was administered the following blood thiners within the last 24 hours: ACCPlavix 8:05:44 Patient diabetic? No. 8:06:06 Previous problem with sedation/anesthesia? No ? 8:06:07 Snore? Yes 8:06:08 Sleep apnea? No 8:06:09 Deviated septum? No 8:06:09 Opens mouth fully? Yes 8:06:10 Sticks out tongue? Yes 8:06:12 Airway obstruction? No ? 8:06:15 Dentures? No ? 8:06:18 Pre procedure: right dorsailis pedis pulse 2+ Normal; easily identifiable; not easily obliterated 8:06:20 Patient pain scale 0/10 ?. 8:06:27 IV patent on arrival in left forearm with 0.9% NaCl at KVO. 8:06:29 Lab results completed and on chart. 8:06:33 Right groin area was prepped with chlora-prep and draped in sterile fashion 8:06:34 Alarms reviewed by R. N. 8:06:34 Sharps counted by scrub and verified by R.N. 8:06:52 Baseline sample Acquired. 8:07:53 Use device set Femoral Dx 8:07:54 ACIST Syringe (44683) opened to sterile field. 8:07:55 Bag Decanter (2002S) opened to sterile field. 8:07:55 Medline Cath Pack ([id number]) opened to sterile field. 8:07:56 DIAGNOSTIC WIRE .035 260cm J wire (141061) opened to sterile field. 8:07:57 ACIST Hand Control (49982) opened to sterile field. 8:07:57 ACIST Manifold (38382) opened to sterile field. 8:07:58 DIAGNOSTIC Multipack 5Fr catheter set (EF0337) opened to sterile field. 8:07:58 Tegaderm 4 x 4 (1626W) opened to sterile field. 8:07:59 SHEATH 5FR Saxis (MOQ566) opened to sterile field. 8:10:36 Final Timeout: patient, procedure, and site verified with staff and physician. All members of the team are in agreement. 8:10:39 Right groin site verified by team. 8:10:42 Fire Safety Assessment: A--An alcohol-based skin anteseptic being used preoperatively., C--Open oxygen or nitrous oxide is being used., D--An ESU, laser, or fiber-optic light is being used. 8:10:45 Physical assessment completed. ASA score P 2 - A patient with mild systemic disease as per Dariusz Molina MD. 8:10:48 Sedation plan: IV Moderate Sedation Medication:Versed, Fentanyl 8:10:56 0.9% NaCl 100 ml/hr I.V. was administered by Iris Albarado RN; used for procedure; 8:11:03 Oxygen 2 l/min etCO2 Nasal cannula was administered by Iris Albarado RN; used for procedure; 8:11:15 Lidocaine 2% 20ml vial added to field was administered by Dariusz Molina MD; for local anesthetic; 8:11:21 Heparin Flush Bag (1000units/500ml NS) 2 bags added to field was administered by Dariusz Molina MD; used for procedure; 8:11:31 Versed 2 mg I.V. was administered by Iris Albarado RN; for sedation; 8:11:40 Fentanyl 50 mcg I.V. was administered by Iris Albarado RN; for sedation; 8:16:02 Fentanyl 25 mcg I.V. was administered by Iris Albarado RN; for sedation; 8:16:52 Versed 1 mg I.V. was administered by Iris Albarado RN; for sedation; 8:19:10 Zero performed for pressure channel P1 8:26:40 Procedure started. 8:26:46 Local anesthetic to right femoral artery with Lidocaine 2% by Dariusz Molina MD.INITIAL ACCESS ONLY 8:27:32 A 5 Fr sheath was inserted into the Right Femoral artery 8:28:10 A MULTIPACK JL 4.0 5Fr catheter was advanced over the wire and used for Left Coronary Angiography. 8:30:24 Catheter removed. 8:32:02 A MULTIPACK 3DRC 5Fr catheter was advanced over the wire and used for Right Coronary Angiography. 8:33:34 Catheter removed. 8:34:28 Use device set MOLINA PCI 8:34:30 SHEATH 6FR Saxis (VDO365) opened to sterile field. 8:34:33 TUBING High Pressure Extension Tubing (Jesse) ([id number]) opened to sterile field. 8:34:36 BMW 300cm [place] 2 J wire ([id number]) opened to sterile field. 8:34:37 INFLATOR Merit BasixCompak (MV7390) opened to sterile field. 8:34:45 A MULTIPACK Pigtail 5 Fr catheter was advanced over the wire and used for LV Angiography. 8:36:18 LV gram done using VICTOR 8:36:20 Injector settings: Ml/sec: 7, Volume: 15, 8:36:22 LV hemodynamics recorded. 8:36:26 EF : 60 % 8:36:56 Catheter removed. 8:37:00 GUIDE 6FR AR 1.0 catheter ([id number]) opened to sterile field. 8:37:08 Sheath upsized to a 6 Fr Short. 8:38:40 6 Fr AR 1.0 guide catheter was inserted over the wire 8:40:00 Heparin Bolus 8000 units I.V. was administered by Iris Albarado RN; for anticoagulation; verified with Dr. Molina 8:40:48 BMW wire advanced. 8:43:37 Place stent Inflation Number: 1 A INTEGRITY OTW 3.5 X 30 stent ([id number]) was prepped and advanced across the Mid RCA. The stent was deployed at 14 SAPNA for 0:16 (min:sec). 8:44:29 Stent catheter was removed intact over wire. 8:46:57 Nitroglycerin IC/IA 100 mcg I.C. was administered by Dariusz Molina MD; for vasodilation; 8:50:13 Place stent Inflation Number: 1 A INTEGRITY OTW 3.5 X 12 stent ([id number]) was prepped and advanced across the Prox RCA. The stent was deployed at 16 SAPNA for 0:17 (min:sec). 8:50:44 Stent catheter was removed intact over wire. 8:50:45 Wire removed. 8:50:45 Guide catheter removed. 8:51:02 Sheath removed intact; hemostasis achieved with Exoseal to the Right Femoral artery. 8:51:04 Procedure ended.(Physican Out) 8:51:15 Fluoroscopy time 05.90 minutes. 8:51:19 Flurop Dose total: 829 8:51:19 Fluoroscopy dose: 829 mGy 8:51:22 Contrast amount:Isovue 300 123ml. 8:51:23 Sharps counted by scrub and verified by R.N. 8:51:25 Insertion/operative site no bleeding no hematoma. 8:51:27 Post-op/insertion site Right Femoral artery dressed using a 4 x 4 and Tegaderm. 8:51:30 Post right femoral artery:stable, clean and dry 8:51:32 Post Procedure Pulses reassessed and unchanged 8:51:33 Post-procedure physical assessment completed. ASA score P 2 - A patient with mild systemic disease as per Dariusz Molina MD. 8:51:36 Post procedure rhythm: unchanged. 8:51:38 Estimated blood loss: 10 ml 8:51:39 Post procedure instruction explained to patient.Patient verbalizes understanding. 8:51:40 Patient needs reinforcement of post procedure teaching. 8:51:53 EXOSEAL 6Fr (EX600) opened to sterile field. 8:52:22 Procedure type changed to Cath procedure, Diagnostic procedure, LHC, LHC w/Coronaries, Sedation Charges, Moderate Sedation up to 30 minutes, PCI procedure, Coronary Stent, Coronary Stent Initial 8:53:07 Procedure Complication : No complications 8:53:10 See physician's report for complete and final results. 8:53:37 Procedure and supply charges have been captured, reviewed, submitted and are correct. 8:53:43 Vital chart was stopped 8:53:46 Report given to PCU. 8:53:52 Patient transfered to PCU with Bed. 8:54:02 Procedure ended. 8:54:02 Full Disclosure recording stopped 8:54:06 End room use (Document Last) Intervention Summary Intervention Notes Time ActionType Lesion and Equipment Action# Pressure Duration Attributes Used 8:43:37 Place stent Mid RCA INTEGRITY 1 14 00:16 OTW 3.5 X 30 stent ([id number]) 8:50:13 Place stent Prox RCA INTEGRITY 1 16 00:17 OTW 3.5 X 12 stent ([id number]) Device Usage Item Name Manufacture Quantity Catalog Hospital Part Current Minimal L ot# / Number Charge Number Stock Stock Serial# Code ACIST Acist 1 93532 941723 003996 248996 20 Syringe Medical (67168) Systems CitiSent Bag Microtek 1 770549 06996 568143 5 Decanter Medical Inc. () Medline Medline 1 [id number] 565505 39771 207537 5 Cath Pack ([id number]) DIAGNOSTIC St Dominguez 1 580529 132013 217027 014499 30 WIRE .035 260cm J wire (156468) ACIST Hand Acist 1 62581 866582 856252 047201 5 Control Medical (33444) Systems Inc ACIST Acist 1 91420 431034 481819 412760 5 Manifold Medical (55317) Systems Inc DIAGNOSTIC Cardinal 1 BE8661 333659 13255 052775 30 Multipack Health 5Fr catheter set (VK4597) Tegaderm 4 3M 1 1626W 981910 718767 501685 5 x 4 (1626W) SHEATH 5FR Terumo 1 HCK623 582795 692494 151192 5 Saxis (ULX344) MULTIPACK Cardinal 1 841858 5 JL 4.0 5Fr Health catheter MULTIPACK Cardinal 1 491364 5 3DRC 5Fr Health catheter SHEATH 6FR Terumo 1 EAC035 850399 432137 102579 40 Saxis (HOL942) TUBING High Merit 1 PH2780R 803092 95474 634474 10 Pressure Medical Extension Tubing (Molina) (LR0065R) BMW 300cm Osman 1 [id number] 838216 702359 598918 5 [place] 2 Vascular J wire ([id number]) INFLATOR Merit 1 UV2178 854647 603652 370417 15 [facility] Medical BasixCompak (HE0757) MULTIPACK Cardinal 1 236682 5 Pigtail 5 Health Fr catheter GUIDE 6FR Medtronic 1 JR2SB83 364271 19532 752022 1 AR 1.0 catheter (PN4MJ70) INTEGRITY Medtronic 1 [id number] 080656 035338 464195 1 0 [id number] OTW 3.5 X 30 stent ([id number]) INTEGRITY Medtronic 1 [id number] 214728 396131 189933 1 0 [id number] OTW 3.5 X 12 stent ([id number]) EXOSEAL 6Fr Cardinal 1 EX600 729701 827434 685355 10 (EX600) Health Signature Audit [place] Stage Time Signature Unsigned Intra-Procedure 06/19/2018 Shannon 8:54:50 AM Counts RT(R) Signatures Monitor : Shannon Signature : Counts RT Date : Time : [id number] [place] [address]
[~2018-06-18 03:21] MED LIST changes: +AMIODARONE HCL200 MG PO; +BAYER CHEWABLE81 MG PO; +LOVASTATIN20 MG PO; +MIRALAX17 GM PO; +PLAVIX75 MG PO
[2018-06-18 04:16] LABS: BASOPHILS 0.3 % (0-2); EOSINOPHILS 4.5 % (0-7); HEMATOCRIT 39.9 % (42.0-54.0); HEMOGLOBIN 13.6 g/dL (13.5-17.5); IMMATURE GRANULOCYTES 0.5 % (0-5); LYMPHOCYTES 33.1 % (15-50); MCH 32.1 pg (26.0-34.0); MCHC 34.1 g/dL (31.0-37.0); MCV 94.1 fL (80.0-100.0); MEAN PLATELET VOLUME 8.5 fL (7.4-10.4); MONOCYTES 7.8 % (2-11); NEUTROPHILS 53.8 % (40-80); PLATELET COUNT 255 10x3/uL (130-400); RBC 4.24 10x6/uL (4.20-6.10); RDW 12.8 % (11.5-14.5); WBC 7.7 10x3/uL (4.8-10.8)
[2018-06-18 04:17] VITALS: BP 127/69
[2018-06-18 04:33] LABS: ALKALINE PHOSPHATASE 61 U/L (46-116); ALT (SGPT) 35 U/L (10-68); BILIRUBIN - TOTAL 0.52 mg/dL (0.2-1.3); CALC OSMOLALITY 277 mosm/kg (275-300); CALCIUM 8.6 mg/dL (8.5-10.1); CARBON DIOXIDE 30.6 mmol/L (21.0-32.0); CHLORIDE - SERUM 100 mmol/L (98-107); CREATININE - SERUM 0.9 mg/dL (0.6-1.3); GLUCOSE 131 mg/dL (74-106); POTASSIUM - SERUM 4.1 mmol/L (3.5-5.1); PROTEIN - SERUM 6.9 g/dL (6.4-8.2); SODIUM 137 mmol/L (136-145); UREA NITROGEN 19 mg/dL (7-18); eGFR NON AFRICAN AMERICAN 86 mL/min (90-120)
[2018-06-18 04:48] LABS: CREATINE KINASE 31 UL (21-232)
[2018-06-18 04:52] LABS: TROPONIN-I 0.084 ng/mL (0.000-0.060)
--- NOTE | 2018-06-18 06:01 | NUR ---
NITRO PASTE REMOVED AND WIPED OFF, NITRODUR PLACED ON PATIENTS CHEST
--- NOTE | 2018-06-18 06:20 | NUR ---
ADMIT TO ROOM 2120 FROM ER VIA WHEELCHAIR. ALERT/ORIENTED. ADMISSION HISTORY UPDATED. HOME MEDS REVIEWED. PLAN OF CARE INITIATED.
--- NOTE | 2018-06-18 07:27 | NUR ---
AM ROUNDS- PT RESTING COMFORTABLY IN BED, EASILY AROUSES TO VOICE. PT A/O X4, A LITTLE SENECA-CAYUGA, WEARING HEARING AIDS. LT WRIST IV SL. RESP EVEN AND NONLABORED ON RA. PT DENIE ANY PAIN AT THIS TIME. CALL LIGHT IN REACH, BEDSIDE RAILS X2, NAD NOTED, WILL CONTINUE PLAN OF CARE.
[2018-06-18 07:30] VITALS: BP 150/67; BMI 25.1
[2018-06-18 08:06] VITALS: BP 144/61
--- NOTE | 2018-06-18 08:44 | NUR ---
ASPIRIN GIVEN ORDERED. ALSO PROVIDED PT WITH ORANGE JUICE. EXPLAINED RATIONAL FOR SCDS. PT REFUSED TO WEAR SCDS AT THIS TIME. PT IS ALSO UP AD KALEB. PT DENIES ANY OTHER NEEDS AT THIS TIME, CALL LIGHT IN REACH, NAD NOTED, WILL CONTINUE TO MONITOR.
[2018-06-18 08:46] LABS: CALC OSMOLALITY 277 mosm/kg (275-300); CALCIUM 8.7 mg/dL (8.5-10.1); CHLORIDE - SERUM 100 mmol/L (98-107); CKMB 0.7 U/L (0.0-3.6); CREATINE KINASE 29 UL (21-232); CREATININE - SERUM 0.9 mg/dL (0.6-1.3); GLUCOSE 128 mg/dL (74-106); SODIUM 137 mmol/L (136-145); UREA NITROGEN 17 mg/dL (7-18); eGFR NON AFRICAN AMERICAN 86 mL/min (90-120)
[2018-06-18 11:51] VITALS: Ht 180.3 cm; Wt 80.8 kg
[2018-06-18 13:06] VITALS: BP 130/64
--- NOTE | 2018-06-18 14:04 | NUR ---
CONSENTS SIGNED BY PT AND PLACED ON CHART. PT RESTING COMFORTABLY IN BED, DENIES ANY NEEDS AT THIS TIME. CALL LIGHT IN REACH,NAD NOTED, WILL CONTINUE TO MONITOR.
[2018-06-18 17:55] VITALS: BP 134/55
--- NOTE | 2018-06-18 20:00 | NUR ---
PT RESTING IN BED WITH NO DISTRESS. ALERT/ORIENTED. IV TO LEFT WRIST SALINE LOCKED. NONLABORED RESPIRATIONS ON ROOM AIR. SR PER TELEMETRY. DENIES PAIN OR DISCOMFORT AT THIS TIME.
[2018-06-18 20:24] VITALS: BP 114/49
--- NOTE | 2018-06-18 21:00 | NUR ---
BEDTIME MEDS GIVEN. PT INSTRUCTED ON NPO AFTER MIDNIGHT FOR HEART CATH IN THE AM. ALSO INSTRUCTED PT ON THE BENEFITS OF O2 PER N/C, EVEN IF JUST PRN WHEN HE FEELS "TWINGES" TO HELP WITH HIS OXYGENATION OF HIS HEART BEFORE HE GOES FOR HIS HEART CATH IN THE AM. PT IN AGREEMENT AND O2 @ 2L/NC NOW IN PLACE.
[2018-06-19] VITALS (11 sets, daily range): BP systolic 103–156; BP diastolic 43–80
--- NOTE | 2018-06-19 02:05 | NUR ---
RESTING IN BED WITH EYES CLOSED. RESPS EVEN/NONLABORED. NPO FOR AM HEART CATH. MONITOR AND CPOC.
--- NOTE | 2018-06-19 07:30 | NUR ---
RECEIVED PT IN BED EYES CLOSED RESP UNLABORED NAD NOTED
--- NOTE | 2018-06-19 10:59 | MORECARE ---
CASE MANAGEMENT DISCHARGE SUMMARY PATIENT: NILSON STONE UNIT: [id number] ADM DATE: 06/18/18 AGE: 77 : 38 SEX: M ROOM/BED: D.2120 AUTHOR: REBECCA DAILEY PHYSICIAN: REFERRING PHYSICIAN: JAZMIN MCKENNA MD DATE OF SERVICE: 06/19/18 Discharge Plan Patient Name: NILSON STONE [facility] [facility] 1940 Planned Disposition: Anticipated Discharge Date: Discharge Date: Expected LOS: Initial Reviewer: [email or web address] Initial Review Date: 06/18/2018 Generated: 06/19/18 11:58 am Coverage Notice Reviewer: [id number] - [place] Notice Issued Date-Time: 06/19/2018 10:27 Notice Type: Medicare Outpatient Observation Notice Notice Delivered To: Family Member Relationship to Patient: Spouse [employer] Name: MORENA STONE Delivery Method: HAND - Hand Delivered Sarina Days: Prior Verbal Notification: Recipient Understood Notice: Yes Recipient Signature: Yes Med Rec Note Co-signed by Attending: Coverage Notice Comment: PATIENT JUST BACK FROM L D RN AND VERY GROGGY. KNODDED PERMISSION TO SPEAK WITH . , MORENA, SIGNED ARRIAZA. Patient Name: NILSON STONE Page [phone] at 1059 All edits/amendments must be made on the electronic document DICTATION DATE: 06/19/18 1058 KLYSTROM TUBE TESTER: ITA 06/19/18 1058 RPT#: [id number] DC DATE: STATUS: ADM IN [facility] [address] [place] [address] END OF REPORT
--- NOTE | 2018-06-19 15:30 | NUR ---
REVIEWED DISCHARGE INSTRUCTIONS WITH PT AND BOTH STATE UNDERSTANDING COPY GIVEN DCD SALINE LOCK WITH IV CATHETER INTACT SITE FREE OF REDNESS OR EDEMA PT DISCHARGED HOME IN STABLE CONDITION WITH ALL PERSONAL BELONGINGS LEFT VIA W/C
--- NOTE | 2018-06-20 09:01 | MORECARE ---
CASE MANAGEMENT DISCHARGE SUMMARY PATIENT: NILSON STONE UNIT: [id number] ADM DATE: 06/18/18 AGE: 77 : 38 SEX: M ROOM/BED: D.2120 AUTHOR: REBECCA DAILEY PHYSICIAN: REFERRING PHYSICIAN: JAZMIN MCKENNA MD DATE OF SERVICE: 06/20/18 Discharge Plan Patient Name: NILSON STONE [facility]:[place] : 1940 Planned Disposition: Home Anticipated Discharge Date: 06/19/18 Discharge Date: 06/19/2018 Expected LOS: 1 Initial Reviewer: [email or web address] Initial Review Date: 06/18/2018 Generated: 06/20/18 10:01 am Coverage Notice Reviewer: [id number] - Linh Baez Notice Issued Date-Time: 06/19/2018 10:27 Notice Type: Medicare Outpatient Observation Notice Notice Delivered To: Family Member Relationship to Patient: Spouse Carton Stapler Name: MORENA STONE Delivery Method: HAND - Hand Delivered Sarina Days: Prior Verbal Notification: Recipient Understood Notice: Yes Recipient Signature: Yes Med Rec Note Co-signed by Attending: Coverage Notice Comment: PATIENT JUST BACK FROM [employer]PER[employer] AND VERY GROGGY. KNODDED PERMISSION TO SPEAK WITH . , MORENA, SIGNED ARRIAZA. Last DP export: 06/19/18 9:58 a Patient Name: NILSON STONE Page [phone] at 0901 All edits/amendments must be made on the electronic document DICTATION DATE: 06/20/[address] ROAD SIGN INSTALLER: DM 06/20/18899 RPT#: [id number] DC DATE:06/19/18 STATUS: DIS IN [facility] [address] [place] [address] END OF REPORT
== END 2018-06-19 15:30 | disposition home or self-care (01) ==
LOC: D.ER 03:21 → OBSVTIME 06:06 → D.M2 06:06
PROVIDERS: Emergency Medicine; ADMIT Internal Medicine Nephrology
DX: I21.4 Non-ST elevation (NSTEMI) myocardial infarction (principal); I25.110 Atherosclerotic heart disease of native coronary artery with unstable angina pectoris; N17.9 Acute kidney failure, unspecified; I10 Essential (primary) hypertension; E78.5 Hyperlipidemia, unspecified

== ENCOUNTER → 2020-02-01 09:15 | Outpatient (CLI) | payer MEDICARE ==
[2018-06-18 11:51] VITALS: BMI 25.1
== END | disposition home or self-care (01) ==
LOC: D.HCCARDIO 09:15
PROVIDERS: ATTEND Internal Medicine Cardiovascular Disease
DX: I25.10 Atherosclerotic heart disease of native coronary artery without angina pectoris (principal)